=== PATIENT | female | born 1950 | race Caucasian/White ===

== ENCOUNTER → 2016-02-21 | Outpatient (CLI) | payer OTHER ==
[~2016-02-21] MED LIST: AMBIEN10 M1 PO; BACTRIM DS 8001 TA1 PO; CALCIUM 500 + D1 TA1 PO; CELEXA40 MG PO; DITROPAN XL5 MG PO; FLEXERIL10 MG PO; INDERAL PO; INDERAL40 MG PO; LEVOFLOXACIN500 MG PO; Orphenadrine C100 MG PO; PERCOCET 325 MG1 TA2 PO; PRAVACHOL40 MG PO; PREDNICOT10 MG PO; PRIMIDONE1 GM PO; SINEMET 25-2501 TAB PO; TRAMADOL HCL50 MG PO; TRAMADOL50 MG PO; ULTRAM50 MG PO; VITAMIN D32000 I1 PO; VITAMIN D32000 UNI1 PO; WELLBUTRIN SR150 MG PO; XANAX0.5 MG PO
== END | disposition home or self-care (01) ==
LOC: RAD 13:57
DX: M25.521 Pain in right elbow (principal); M25.421 Effusion, right elbow

== ENCOUNTER → 2016-03-11 | Outpatient (CLI) | payer OTHER | END | disposition home or self-care (01) | LOC: RAD 13:33 → LAB 13:33 | DX: M25.421 Effusion, right elbow (principal) ==

== ENCOUNTER → 2016-09-18 | Outpatient (CLI) | payer OTHER | END | disposition home or self-care (01) | LOC: CARD 09:26 | DX: I07.1 Rheumatic tricuspid insufficiency (principal); R60.0 Localized edema ==

== ENCOUNTER 2016-11-17 23:24 | Emergency (ER) | payer OTHER ==
[~2016-11-17] VITALS: Ht 162.5 cm; Wt 78.0 kg
[2016-11-17 23:31] VITALS: BP 111/61
== END 2016-11-18 01:44 | disposition home or self-care (01) ==
LOC: ED 23:24
DX: S01.111A Laceration without foreign body of right eyelid and periocular area, initial encounter (principal); S09.90XA Unspecified injury of head, initial encounter; Z90.710 Acquired absence of both cervix and uterus; Z98.890 Other specified postprocedural states; Z79.899 Other long term (current) drug therapy; Z88.6 Allergy status to analgesic agent; Z88.5 Allergy status to narcotic agent; W19.XXXA Unspecified fall, initial encounter; Y93.89 Activity, other specified; Y92.89 Other specified places as the place of occurrence of the external cause; Y99.9 Unspecified external cause status

== ENCOUNTER → 2016-12-03 | Outpatient (CLI) | payer OTHER ==
[~2016-12-03] MED LIST changes: +AMANTADINE HCL100 M2 PO; +DITROPAN XL10 MG PO; +DOXYCYCLINE100 M3 PO; +MYSOLINE250 MG PO; +Motrin,Rufen800 MG PO; +PREVACID30 M2 PO; +SEPTDS PO; +SINEMET 10-1001 EACH PO
--- NOTE | 2016-12-03 10:00 | NUR ---
INFORMED CONSENT OBTAINED FOR LEXISCAN NUCLEAR STRESS TEST WITH SYLVIA. RESTING EKG NSR WITH A RESTING HR OF 64 WITH BP OF 110/64. LUNGS CLEAR WITH SPO2 OF 97% ON ROOM AIR. PT COMPLETED A 1:00 LEXISCAN PROTOCOL RECEIVING LEXISCAN 0.4 MG IV OVER 10 SECONDS. HAD NO CHEST PAIN OR ANY EKG CHANGES. DID C/O FEELINGS OF SHORTNESS OF BREATH, NAUSEA, THROAT AND CHEST DISCOMFORT THAT WAS RELIEVED IN RECOVERY. HAD A PEAK HR OF 91 WITH BP OF 120/56. LAST RECOVERY HR OF 85 WITH BP OF 114/62. AWAITING SCANNING IN STABLE CONDITION.
== END | disposition home or self-care (01) ==
LOC: CARD 02:21
DX: R07.2 Precordial pain (principal); R53.81 Other malaise

== ENCOUNTER 2016-12-04 11:27 | Inpatient (IN) | payer OTHER ==
[~2016-12-04] VITALS: Ht 162.6 cm; Wt 79.2 kg
[~2016-12-04 11:27] MED LIST changes: -AMANTADINE HCL100 M2 PO; -DITROPAN XL10 MG PO; -DOXYCYCLINE100 M3 PO; -MYSOLINE250 MG PO; -Motrin,Rufen800 MG PO; -PREVACID30 M2 PO; -SEPTDS PO; -SINEMET 10-1001 EACH PO
[2016-12-04 11:38] VITALS: BP 123/76
[2016-12-04 12:25] LABS: BASO # 0.1 10*3/uL (0.0-0.1); BASO % 0.6 % (0.0-1.0); EOS # 0.3 10*3/uL (0.0-0.4); EOS % 3.1 % (1.0-4.0); HEMATOCRIT 36.9 % (37.0-47.0); HEMOGLOBIN 11.7 g/dl (12.0-16.0); LYMPH # 1.4 10*3/uL (1.3-4.4); LYMPH % 16.9 % (27.0-41.0); MEAN CELL VOLUME 95.8 fl (81.0-99.0); MEAN CORPUSCULAR HGB 30.4 pg (27.0-31.0); MEAN CORPUSCULAR HGB CONC 31.7 g/dl (33.0-37.0); MONO # 0.5 10*3/uL (0.1-1.0); MONO % 6.2 % (3.0-9.0); NEUT # 6.2 10*3/uL (2.3-7.9); NEUT % 72.7 % (47.0-73.0); PLATELET COUNT AUTOMATED 227 10*3/uL (130-400); RED BLOOD COUNT 3.85 10*6/uL (4.10-5.10); RED CELL DISTRI WIDTH 14.5 % (0-14.5); WHITE BLOOD COUNT 8.5 10*3/uL (4.8-10.8)
[2016-12-04 12:41] LABS: ALBUMIN 2.8 gm/dl (3.1-4.5); ALKALINE PHOSPHATASE 162 U/L (45-117); BUN 12 mg/dl (7-24); CHLORIDE 111 mmol/L (98-107); POTASSIUM 3.8 mmol/L (3.5-5.1); SGOT/AST 12 IU/L (3-35); SGPT/ALT 11 U/L (12-78); SODIUM 142 mmol/L (136-145); TOTAL PROTEIN 6.5 gm/dL (6.4-8.2)
--- NOTE | 2016-12-04 12:46 | NUR ---
PT REMAINS W/O ACUTE DISTRESS NOTED WITH FAMILY @ BEDSIDE PT WATHCING T.V. WITH CALL LIGHT WITHIN REACH AND SAFETY PRECAUTIONS INTACT, NO COMPLAINTS VOICED.
[2016-12-04 13:30] VITALS: BP 126/66
--- NOTE | 2016-12-04 13:30 | NUR ---
The assessment has been completed. MARCELINA NEWMAN
[2016-12-04] MEDS ORDERED: SINEMET 10-1001 EACH PO (14:00)
[2016-12-04] MEDS ORDERED: DITROPAN XL10 MG PO (14:01)
[2016-12-04] MEDS ORDERED: MYSOLINE250 MG PO (14:02)
[2016-12-04] MEDS ORDERED: Motrin,Rufen800 MG PO (14:03)
[2016-12-04] MEDS ORDERED: AMANTADINE HCL100 M2 PO (14:05)
[2016-12-04] MEDS ORDERED: DOXYCYCLINE100 M3 PO (14:07)
[2016-12-04] MEDS ORDERED: SEPTDS PO (14:07)
[2016-12-04] MEDS ORDERED: PREVACID30 M2 PO (14:09)
--- NOTE | 2016-12-04 14:09 | NUR ---
MEDICATION LIST REVIEWED WITH PATIENT AND PHARMACY AND MED REC UPDATED.
[2016-12-04 16:00] VITALS: BP 124/67
[2016-12-04 20:00] VITALS: BP 120/57
[2016-12-05] VITALS: BP 113/53
[2016-12-05 06:21] LABS: BASO # 0.1 10*3/uL (0.0-0.1); BASO % 0.7 % (0.0-1.0); EOS # 0.3 10*3/uL (0.0-0.4); HEMATOCRIT 35.5 % (37.0-47.0); HEMOGLOBIN 11.3 g/dl (12.0-16.0); LYMPH # 1.6 10*3/uL (1.3-4.4); LYMPH % 19.5 % (27.0-41.0); MEAN CELL VOLUME 96.2 fl (81.0-99.0); MEAN CORPUSCULAR HGB 30.6 pg (27.0-31.0); MEAN CORPUSCULAR HGB CONC 31.8 g/dl (33.0-37.0); MEAN PLATELET VOLUME 9.8 fl (9.6-12.3); MONO # 0.6 10*3/uL (0.1-1.0); MONO % 6.7 % (3.0-9.0); NEUT # 5.8 10*3/uL (2.3-7.9); NEUT % 69.7 % (47.0-73.0); PLATELET COUNT AUTOMATED 221 10*3/uL (130-400); RED BLOOD COUNT 3.69 10*6/uL (4.10-5.10); RED CELL DISTRI WIDTH 14.2 % (0-14.5); WHITE BLOOD COUNT 8.3 10*3/uL (4.8-10.8)
[2016-12-05 07:03] LABS: ALBUMIN 2.7 gm/dl (3.1-4.5); ALKALINE PHOSPHATASE 138 U/L (45-117); BUN 11 mg/dl (7-24); CHLORIDE 109 mmol/L (98-107); CHOLESTEROL 138 mg/dL (<200); PHOSPHOROUS 3.5 mg/dL (2.5-4.9); POTASSIUM 4.2 mmol/L (3.5-5.1); SGOT/AST 8 IU/L (3-35); SGPT/ALT 13 U/L (12-78); SODIUM 141 mmol/L (136-145); TOTAL PROTEIN 5.9 gm/dL (6.4-8.2); TRIGLYCERIDES 100 mg/dl (<150); VLDL CHOLESTEROL 20 mg/dL (6-40)
[2016-12-05 07:05] LABS: ACT PARTIAL THROMBO TIME 27.1 SECONDS (20.8-31.5); INTERNATIONAL NORM RATIO 0.9 (2.0-3.5)
[2016-12-05 07:08] LABS: VITAMIN D, 25-HYDROXY 19.3 ng/mL (30-100)
[2016-12-05 07:11] LABS: CREATININE 0.62 mg/dL (0.55-1.02); FREE T4 0.57 ng/dl (0.76-1.46); HDL CHOLESTEROL 63 mg/dl (40-60); LDL CHOLESTEROL 55 mg/dL (9-159)
[2016-12-05 08:00] VITALS: BP 127/66
--- NOTE | 2016-12-05 08:30 | NUR ---
Electrolysis Needle Operator in to talk to patient. Patient states lives at HOME with HER . There are 0 steps in the home. Physician: DR PERLA [facility] services: NONE Patient's level of ADLs: INDEPENDENT Patient has working utilities: YES DME: [facility]ER/[facility] Follow-up physician's appointment after d/c: PREFERS TO MAKE HER OWN APPT Does patient want to access PORTAL?: Discharge plan HOME. YESIKA GAUTAM PT HAS [facility] IN PLACE FOR PT/OT AND REQUESTS THIS CONTINUE AT UT
--- NOTE | 2016-12-05 09:02 | NUR ---
PT RESTING IN BED. NO DISTRESS NOTED. FAMILY AT BEDSIDE. WILL MONITOR. CALL LIGHT WITHIN REACH
--- NOTE | 2016-12-05 09:13 | NUR ---
Patient reports that she has LLE pain radiating from hip to foot and she requested no Occupational Therapy evaluation this date. OTR will recheck at a later date. Thank you for this referral. Zenaida Schulz OTR/Jw
--- NOTE | 2016-12-05 09:15 | NUR ---
PHYSICAL THERAPY PAtient requests no PT this date secondary to severe LE pain. Will attempt at a later date. Thank you for this referral. Nely Booth,PT
--- NOTE | 2016-12-05 09:28 | NUR ---
PT REQUESTED AND GIVEN MOTRIN FOR C/O LEFT HIP PAIN. PT RATES PAIN 6/10. WILL MONITOR
--- NOTE | 2016-12-05 11:30 | NUR ---
MOTRIN EFFECTIVE PER PT . FAMILY AT BEDSIDE
[2016-12-05 12:00] VITALS: BP 121/79
[2016-12-05 16:00] VITALS: BP 116/69
[2016-12-05 20:00] VITALS: BP 133/82
--- NOTE | 2016-12-05 20:00 | NUR ---
PATIENT MEDICATED WITH NAPROXEN 375MG PER PRN ORDER FOR C/O PAIN. SEE EMAR. REINFORCED USE OF CALL LIGHT.
[2016-12-06] VITALS: BP 130/80
--- NOTE | 2016-12-06 | NUR ---
PATIENT RESTING QUIETLY. NO FURTHER C/O VOICED.
[2016-12-06 08:00] VITALS: BP 125/59
--- NOTE | 2016-12-06 08:35 | NUR ---
DR TOMPKINS IN TO SEE PT AT THIS TIME.
--- NOTE | 2016-12-06 08:45 | NUR ---
MEDICATED WITH NAPROXEN FOR COMPLAINTS OF LEFT HIP PAIN. WILL MONITOR FOR EFFECTIVENESS.
[2016-12-06] MEDS ORDERED: VITAMIN D32000 UNI1 PO (10:39)
[2016-12-06] MEDS ORDERED: NAPROXEN375 MG PO (10:39)
--- NOTE | 2016-12-06 10:46 | NUR ---
PHYSICAL THERAPY PAtient evaluated on 5, full evaluation to follow. continue with PT as per plan of care with fall and MRSA Scalp precautions. Home with home health RN and PT as needed. PAtient is moderate complexity via chart review, tests and evaluation: [id number]. Thank you for this referral. Nely Booth,PT
[2016-12-06] MEDS ORDERED: RIFADIN300 MG PO (11:35)
[2016-12-06] MEDS ORDERED: DOXYCYCLINE100 M3 PO (11:35)
[2016-12-06 12:00] VITALS: BP 118/79
--- NOTE | 2016-12-06 13:00 | NUR ---
DR AMES AND DR PERLA IN TO SEE PT.
--- NOTE | 2016-12-06 14:04 | NUR ---
Discharge instructions reviewed with patient/family. Patient receptive and verbalizes understanding. Follow-up care arranged. Written instructions given to patient/family. IV site removed, pt transported to [facility] via wheelchair accompanied by staff. RUT FLORES
--- NOTE | 2016-12-09 08:24 | NUR ---
PHYSICAL THERAPY CO-SIGN I approve of the Phyical Therapy notes written above. LUIS ENRIQUE BOYER PT
--- NOTE | 2016-12-09 08:51 | NUR ---
Patient discharged to home 12/06/16 to resume home health via [facility]. Received resume order, faxed to [facility].
== END 2016-12-06 14:04 | disposition home or self-care (01) | DRG 91 ==
LOC: ED 11:27 → EDHOLD 12:15 → 5E 12:15
PROVIDERS: Internal Medicine Hospice and Palliative Medicine; Physician Assistant; ADMIT Internal Medicine
DX: T85.731A Infection and inflammatory reaction due to implanted electronic neurostimulator of brain, electrode (lead), initial encounter (principal); E43 Unspecified severe protein-calorie malnutrition; E87.8 Other disorders of electrolyte and fluid balance, not elsewhere classified; G20 Parkinson's disease; F03.90 Unspecified dementia, unspecified severity, without behavioral disturbance, psychotic disturbance, mood disturbance, and anxiety; L02.811 Cutaneous abscess of head [any part, except face]; A49.02 Methicillin resistant Staphylococcus aureus infection, unspecified site; D64.9 Anemia, unspecified; F41.1 Generalized anxiety disorder; F32.9 Major depressive disorder, single episode, unspecified; Y83.8 Other surgical procedures as the cause of abnormal reaction of the patient, or of later complication, without mention of misadventure at the time of the procedure; G47.00 Insomnia, unspecified; N32.81 Overactive bladder; E78.00 Pure hypercholesterolemia, unspecified; E55.9 Vitamin D deficiency, unspecified; M54.5 Low back pain; G89.29 Other chronic pain; Z71.6 Tobacco abuse counseling; Z72.0 Tobacco use; Z98.890 Other specified postprocedural states; Y92.89 Other specified places as the place of occurrence of the external cause; Z88.6 Allergy status to analgesic agent; Z88.8 Allergy status to other drugs, medicaments and biological substances; Z79.899 Other long term (current) drug therapy; Z90.49 Acquired absence of other specified parts of digestive tract; Z90.710 Acquired absence of both cervix and uterus; Z82.49 Family history of ischemic heart disease and other diseases of the circulatory system; Z82.3 Family history of stroke; Z80.1 Family history of malignant neoplasm of trachea, bronchus and lung; Z80.8 Family history of malignant neoplasm of other organs or systems; Z68.29 Body mass index [BMI] 29.0-29.9, adult

== ENCOUNTER → 2016-12-11 | Outpatient (CLI) | payer OTHER ==
[~2016-12-11] MED LIST changes: +AMANTADINE HCL100 M2 PO; +DITROPAN XL10 MG PO; +DOXYCYCLINE100 M3 PO; +MYSOLINE250 MG PO; +Motrin,Rufen800 MG PO; +NAPROXEN375 MG PO; +PREVACID30 M2 PO; +RIFADIN300 MG PO; +SEPTDS PO; +SINEMET 10-1001 EACH PO
[2016-12-11 13:14] LABS: BASO # 0.1 10*3/uL (0.0-0.1); BASO % 0.7 % (0.0-1.0); EOS # 0.3 10*3/uL (0.0-0.4); EOS % 2.7 % (1.0-4.0); HEMATOCRIT 40.1 % (37.0-47.0); HEMOGLOBIN 12.6 g/dl (12.0-16.0); LYMPH # 1.6 10*3/uL (1.3-4.4); LYMPH % 14.8 % (27.0-41.0); MEAN CELL VOLUME 95.5 fl (81.0-99.0); MEAN CORPUSCULAR HGB CONC 31.4 g/dl (33.0-37.0); MEAN PLATELET VOLUME 9.9 fl (9.6-12.3); MONO # 0.6 10*3/uL (0.1-1.0); MONO % 5.2 % (3.0-9.0); NEUT # 8.1 10*3/uL (2.3-7.9); NEUT % 76.1 % (47.0-73.0); PLATELET COUNT AUTOMATED 274 10*3/uL (130-400); RED CELL DISTRI WIDTH 14.6 % (0-14.5); WHITE BLOOD COUNT 10.7 10*3/uL (4.8-10.8)
[2016-12-11 13:25] LABS: BILIRUBIN NEGATIVE (NEGATIVE); BLOOD NEGATIVE (NEGATIVE); CLARITY CLEAR (CLEAR); COLOR YELLOW (YELLOW); GLUCOSE NEGATIVE (NEGATIVE); KETONE NEGATIVE (NEGATIVE); LEUKO ESTERASE NEGATIVE (NEGATIVE); NITRITE NEGATIVE (NEGATIVE); PH 5.5 (5.0-9.0); SPECIFIC GRAVITY <= 1.005 (1.005-1.030); UROBILINOGEN 0.2 E.U./dl (0.2-1.0)
[2016-12-11 13:45] LABS: ALBUMIN 3.3 gm/dl (3.1-4.5); ALKALINE PHOSPHATASE 170 U/L (45-117); BUN 22 mg/dl (7-24); CHLORIDE 109 mmol/L (98-107); CREATININE 0.83 mg/dL (0.55-1.02); POTASSIUM 4.5 mmol/L (3.5-5.1); SGOT/AST 11 IU/L (3-35); SGPT/ALT 11 U/L (12-78); SODIUM 142 mmol/L (136-145); TOTAL PROTEIN 6.6 gm/dL (6.4-8.2)
[2016-12-11 13:46] LABS: ACT PARTIAL THROMBO TIME 28.7 SECONDS (20.8-31.5)
[2016-12-11 13:48] LABS: BACTERIA TRACE
== END | disposition home or self-care (01) ==
LOC: LAB 12:39
PROVIDERS: Neurological Surgery
DX: G20 Parkinson's disease (principal); R79.89 Other specified abnormal findings of blood chemistry; F17.200 Nicotine dependence, unspecified, uncomplicated; Z79.01 Long term (current) use of anticoagulants

== ENCOUNTER 2016-12-25 14:40 | Inpatient (IN) | payer OTHER ==
[~2016-12-25] VITALS: Ht 168 cm; Wt 77.7 kg
--- NOTE | ~2016-12-25 | PR ---
[place], [place] PROGRESS NOTE NAME: GIO MCKOY [facility] #: [id number] UNIT #: [id number] ROOM: 503 DOCTOR: RENA BURRELL,MAY BIRTHDATE: [birth year] DOS: SUBJECTIVE: The patient is a 66-year-old old female being followed for an infected deep brain stimulator that she has for Parkinson's. It is infected with Staph aureus. Cultures here from November show MSSA, but the patient reports that it was MRSA. She was at home on vancomycin per Infectious Disease from [facility] and developed acute kidney injury. Her creatinine continues to improve and it is today down to 2.47. She is alert and oriented, feels fairly well as having some left hip pain. She states she has bursitis in the hip. No fevers or chills, did have some nausea and vomiting with her this morning. No rash or itch. No cough or shortness of breath. LABORATORY DATA: WBC 6.9, platelets 135. BUN 32, creatinine 2.47. LFTs within normal limits. CURRENT MEDICATIONS: Include Percocet, Symmetrel, rifampin, Mysoline, Celexa, Sinemet, Wellbutrin, Ambien, heparin, Zofran, milk of mag, Dulcolax, and Tylenol. PHYSICAL EXAMINATION: VITAL SIGNS: Temperature 97.6, pulse 51, respirations 20, BP 169/76. GENERAL: Alert and oriented 66-year-old female, in no acute distress. HEAD, EYES, EARS, NOSE AND THROAT: Normocephalic, no thrush. LUNGS: Clear to auscultation bilaterally. Respirations even and unlabored. HEART: Regular rhythm. No murmur appreciated. ABDOMEN: Soft, nontender. EXTREMITIES: No edema, deformity or cyanosis. The right frontal scalp with the incisional approximated with sutures. No discharge or erythema. ASSESSMENT: Infected deep brain stimulator with hardware left in place status post debridement at [facility]. PLAN: The patient's creatinine is improving. Antibiotics will need to be restarted once her vancomycin level is less than 20. We will check a random level on December 29 in a.m. I did obtain the contact information for her Infectious Disease physician in [facility], Dr. Jeffrey, phone number [phone]. They will be contacted to discuss discharge antibiotics. Continue the rifampin. Case discussed with Dr. Anne Kinsey. DANDRE CHASE CNP [place], [place] PROGRESS NOTE NAME: EANGIO UNIT #: [id number] ROOM: 503 DOCTOR: RENA BURRELL BIRTHDATE: [birth year] ANNE KINSEY MD CM:PNADELAIDA 09 [phone] RENA BURRELL 12/27/161850 interface
--- NOTE | ~2016-12-25 | PR ---
[place], [place] PROGRESS NOTE NAME: GIO MCKOY UNIT #: [id number] ROOM: 503 DOCTOR: AMELIE LEAHY,ANNE Villalba BIRTHDATE: [birth year] DOS: 12/27/2016 ADDENDUM After reviewing the chart and the labs, I agree with the above plans as described. We will make adjustments accordingly and follow up clinically. ANNE KINSEY MD CM:PNTRANS 192 10 ANNE KINSEY MD 12/30/16 1105 interface
--- NOTE | ~2016-12-25 | PR ---
[place], [place] [facility]GRESS [id number] UNIT #: [id number] ROOM: 503 DOCTOR: AMELIE LEAHY,ANNE Villalba BIRTHDATE: [birth year] DOS: 12/27/2016 ADDENDUM After reviewing the chart and labs as well as microbiology, I agree with above plans as described. We will follow the patient up clinically and adjust accordingly. ANNE KINSEY MD CM:PNTRANS [phone] ANNE KINSEY MD 12/30/16 1105 interface
--- NOTE | ~2016-12-25 | PR ---
[place], [place] PROGRESS NOTE NAME: GIO MCKOY [facility] #: [id number] UNIT #: [id number] ROOM: 503 DOCTOR: RENA BURRELLMAY BIRTHDATE: [birth year] DOS: 12/28/2016 SUBJECTIVE: The patient is being followed for deep brain stimulator infected hardware with Staph aureus. Cultures here in November had grown MSSA, but the patient states that she was treated for MRSA at [facility]. She suffered an acute kidney injury from her vancomycin as an outpatient and her creatinine has been improving. Today, it is down to 2.37. Her last vancomycin level was 38 a couple of days ago. She remains afebrile. No nausea, vomiting or diarrhea. No rash or itch. No cough or shortness of breath. No headache or dizziness. No chest pain or palpitations. LABORATORY DATA: Show WBCs of 8.4, platelets 146. BUN 27, creatinine 2.37. CURRENT MEDICATIONS: Include rifampin, Percocet, salmeterol, Mysoline, Celexa, Sinemet, Wellbutrin, Ambien, heparin, Zofran, milk of mag, Dulcolax, Tylenol. PHYSICAL EXAMINATION: VITAL SIGNS: Show temp 97.9, pulse 69, respirations 18, BP 178/84. GENERAL: Alert and oriented 66-year-old female, in no acute distress. HEAD, EYES, EARS, NOSE, AND THROAT: Scalp incision is well approximated with sutures. No discharge or cellulitis. No thrush. Edentulous. LUNGS: Clear to auscultation bilaterally. Respirations even and unlabored. HEART: Regular rhythm. No murmur appreciated. ABDOMEN: Soft, nontender. EXTREMITIES: +2 edema bilateral lower extremities. PICC in the right upper extremity. Dressing dry and intact. No signs of phlebitis. ASSESSMENT: Infected deep brain stimulator with Staphylococcus aureus, now with adverse drug reaction with an acute kidney injury due to her vancomycin. PLAN: We will continue the rifampin, check a random vancomycin level in the morning. I intend to contact Dr. Jeffrey with [facility] Infectious Disease to discuss discharge with antibiotics on Friday. MAY ASHANTI CHASE [place], [place] PROGRESS NOTE NAME: GIO MCKOY UNIT #: [id number] ROOM: 503 DOCTOR: RENA BURRELL,MAY BIRTHDATE: [birth year] ANNE KINSEY MD CM:LOUIE 43 12 RENA BURRELL 12/30/16 1050 interface
--- NOTE | ~2016-12-25 | PR ---
[place], [place] PROGRESS NOTE NAME: GIO MCKOY [facility] #: [id number] UNIT #: [id number] ROOM: 503 DOCTOR: RENA BURRELL,MAY BIRTHDATE: [birth year] DOS: SUBJECTIVE: The patient is being followed for an infected brain stimulator. She had an acute kidney injury due to IV vancomycin. She remains on rifampin. I discussed the case yesterday with her ID physician from [place] and verified that her culture there grew MSSA. Her culture here in November grew MSSA. She was restarted yesterday evening on Ancef 2 grams IV q. 12 hours. Her creatinine clearance is still in the low 30s, precluding q. 8 hours dosing just yet. She is doing well. Denies any fevers, chills, nausea, vomiting or diarrhea. No rash or itch. No cough or shortness of breath. No headache or dizziness. LABORATORY DATA: BUN 23, creatinine 2.11, continues to slowly improve. CURRENT MEDICATIONS: Include Ancef, Percocet, rifampin, Symmetrel, Mysoline, Celexa, Sinemet, Wellbutrin, Ambien, heparin, Zofran, milk of mag, Dulcolax, Tylenol. OBJECTIVE: VITAL SIGNS: Temperature 97.9, pulse 64, respirations 20, BP 148/68. GENERAL: A 66-year-old female, in no acute distress. HEAD, EYES, EARS, NOSE AND THROAT: Normocephalic. Incision is well approximated with sutures. No discharge or erythema. LUNGS: Clear to auscultation bilaterally. Respirations even and unlabored. HEART: Regular rhythm. No murmur appreciated. ABDOMEN: Soft, nontender. EXTREMITIES: No edema. PICC in place. Dressing dry and intact. No signs of phlebitis. ASSESSMENT: Infected brain stimulator with methicillin-susceptible Staphylococcus aureus and retained hardware, status post debridement on December 19. PLAN: She is to continue her Ancef, is okay for discharge. She is to follow up with ID in [place]. I am going to contact their office to let them know they need to be watching for her creatinine to improve in order to be able to ____ dosing to every 8 hours, but at this point her GFR remains too low for that. She is to continue rifampin as well. MAY ASHANTI CHASE [place], [place] PROGRESS NOTE NAME: EANGIO UNIT #: [id number] ROOM: 503 DOCTOR: RENA BURRELLMAY BIRTHDATE: [birth year] ANNE KINSEY MD CM:PNTRANS [id number] MAY RENA BURRELL 01/01/17 0419 interface
--- NOTE | ~2016-12-25 | PR ---
[place], [place] PROGRESS NOTE NAME: GIO MCKOY [facility] #: [id number] UNIT #: [id number] ROOM: 503 DOCTOR: SANTA QUINONES MD BIRTHDATE: [birth year] DOS: 12/29/2016 SUBJECTIVE: The patient has been admitted to the hospital with acute renal failure on chronic renal failure. She is gradually getting better and has been seen by collection systems foreman; according to them, the patient has acute kidney injury secondary to vancomycin and NSAIDs, which was stopped and she is feeling better. Her infection is feeling better. Her CBC showed white count 7400, hemoglobin 10.3, hematocrit 31.2. Renal function today showed glucose 93, BUN 24, creatinine 2.24, GFR 22, chloride 108, other values are normal. Patient is also having infected deep brain stimulator with hardware in the left side, which has got infected and due to that, she needs antibiotic treatment and that is why she was getting vancomycin and now at present, patient is cleared to take vancomycin according to the collection systems foreman. OBJECTIVE: VITAL SIGNS: Blood pressure is 160/70, pulse 70, respirations 18, temperature 97.8. CHEST: Clear. HEART: Regular. ABDOMEN: Soft. SANTA QUINONES MD CM:PNADELAIDA [id number] SANTA QUINONES MD 12/29/16 2317 interface
--- NOTE | ~2016-12-25 | PR ---
[place], [place] PROGRESS NOTE NAME: GIO MCKOY UNIT #: [id number] ROOM: 503 DOCTOR: AMELIE LEAHY,ANNE Villalba BIRTHDATE: [birth year] DOS: 12/28/2016 ADDENDUM After reviewing short labs and radiographs, I agree with above plans as described and follow the patient up clinically and adjust accordingly. ANNE KINSEY MD CM:PNADELAIDA [phone] ANNE KINSEY MD 12/30/16 1105 interface
--- NOTE | ~2016-12-25 | PR ---
[place], [place] PROGRESS NOTE NAME: GIO MCKOY [facility] #: [id number] UNIT #: [id number] ROOM: 503 DOCTOR: SANTA QUINONES MD BIRTHDATE: [birth year] DOS: 12/28/2016 SUBJECTIVE: The patient has been admitted to the hospital with infection of the deep brain stimulator with Parkinson's disease and she had MRSA infection for which she is being treated. She had developed acute renal failure due to the vancomycin, so that was stopped and she is slowly improving. Her CBC today is showing white count 8400, hemoglobin 9.8, hematocrit 30.6. Her renal function shows BUN is 27, creatinine 2.37. GFR 20 and the patient has been seen by Dr. Mireles today and he is satisfied that the patient is improving. OBJECTIVE: VITAL SIGNS: Blood pressure today is 140/69, pulse 64, respirations 18, temperature 98.4. CHEST: Clear. HEART: Regular. ABDOMEN: Soft. The patient is denying having any acute distress. SANTA QUINONES MD CM:PNTRANS [phone] SANTA QUINONES MD 12/30/16 1100 interface
--- NOTE | ~2016-12-25 | CON ---
[place], [place] REPORT OF CONSULTATION [id number] UNIT #: [id number] ROOM: 503 DOCTOR: RENA BURRELL,MAY BIRTHDATE: [birth year] DOS: HISTORY OF PRESENT ILLNESS: The patient is a 66-year-old female. She was at [facility]. She had an infected brain stimulator in place. She developed infection there with, according to the patient, MRSA. She had debridement done on December 18, the hardware was left in place. She was placed on vancomycin and rifampin. She went home. Her routine labs while she was at home obtained by home health showed an elevated creatinine and vancomycin level. She was admitted to [facility] with acute kidney injury as the deep brain stimulator was originally placed in April 2016. She had been seen here previously per review of the old [facility] records. ID is now consulted for continued antibiotic management. Her vancomycin level at the time of admission was 48.4 on the , it is down to 38.9 today. Creatinine has begun improving. It is down to 2.83 today; on the , it was 3.14. She is not currently receiving any vancomycin. Her rifampin has not been continued either. She is alert and oriented, feeling fairly well. No fevers or chills. No rash or itch. Review of the cultures here from December 04 showed MSSA, not MRSA and the MRSA screen was negative. PAST MEDICAL HISTORY: As above as well as cervical radiculopathy, chronic back pain, dementia, depression, left parotid facial droop since the left parotid surgery, general anxiety disorder, hypercholesterolemia, insomnia, overactive bladder, Parkinson's disease, tobacco abuse, vitamin D deficiency, appendectomy, blepharoplasty, deep brain stimulator placement for Parkinson's in April of this year, cholecystectomy, hysterectomy, left parotidectomy. SOCIAL HISTORY: Reformed smoker, a pack per day for 50 years. No alcohol or illicit drug use. FAMILY MEDICAL HISTORY: Her brother at age of 45 from [place], a sister with brain aneurysm, sister and brother with lung cancer. ALLERGIES: INCLUDE ACETAMINOPHEN, HYDROCODONE, MORPHINE AND TRAMADOL. LABORATORY DATA: Only culture of this hospitalization is urine culture with no current bacterial breath. WBC 6.8, platelets 144, BUN 34, creatinine 2.83. LFTs within normal limits. CURRENT MEDICATIONS: Include Symmetrel, Mysoline, Celexa, Sinemet, Wellbutrin, zolpidem, Ambien, Zofran, milk of mag, Dulcolax, Tylenol. REVIEW OF SYSTEMS: Alert and oriented. Has a slightly headache, no nausea or vomiting, no diarrhea, no rash or itch, no cough or shortness of breath, feels fairly well. No difficulty with urination, dysuria or frequency. Does have chronic left facial droop from prior surgery. No joint swelling or pain. Further review of systems is unremarkable. PHYSICAL EXAMINATION: VITAL SIGNS: Show temp 98.2, pulse 59, respirations 18, BP 154/73: GENERAL: A 66-year-old female in no acute distress. [place], [place] REPORT OF CONSULTATION NAME: GIO MCKOY UNIT #: [id number] ROOM: [facility] DOCTOR: RENA BURRELL,MAY BIRTHDATE: [birth year] HEAD, EYES, EARS, NOSE AND THROAT: Normocephalic, no thrush. NECK: Supple. Right scalp incision is well approximated with sutures. No discharge or erythema. LUNGS: Clear to auscultation bilaterally. Respirations even and unlabored. HEART: Regular rhythm. No murmur appreciated. ABDOMEN: Soft, nontender, nondistended. EXTREMITIES: No edema, deformity or cyanosis. She is noted to have left facial droop. She has PICC in the right upper extremity. Dressing dry and intact. No signs of phlebitis. ASSESSMENT AND PLAN: Infected deep brain stimulator status post debridement, but not removal, now with acute kidney injury and has an adverse drug reaction due to her vancomycin. Her rifampin needs to be resumed that is to help the antibiotics pill to penetrate to the biofilm of the Staph on the hardware will need to be contacted prior to her discharge to see if they would like to use Teflaro or daptomycin at the time of discharge. She is currently covered with her vancomycin as her level is still therapeutic and it could be reached in a couple of days. The wound culture here from December 04 showed methicillin-susceptible Staphylococcus aureus, but the patient states it was methicillin-resistant Staphylococcus aureus from her debridement. Case discussed with Dr. Anne Kinsey. ADDENDUM After reviewing the case, labs radiographs and microbiology, I agree with the above plans as described. We will make adjustments as more data returns and follow up clinically. Thank for allowing me to see the patient and participate in care. DANDRE CHASE CNP ANNE KINSEY MD CM:CONSTR:REPORT OF CONSULTATION 1742 12/27/16 0032 interface
--- NOTE | ~2016-12-25 | PR ---
[place], [place] PROGRESS NOTE NAME: GIO MCKOY [facility] #: [id number] UNIT #: [id number] ROOM: 503 DOCTOR: RENA BURRELL,MAY BIRTHDATE: [birth year] DOS: 12/30/2016 SUBJECTIVE: The patient is being followed for infected brain stimulator, which has been status post debridement on December 19. Cultures here grew MSSA, but the patient states she had MRSA in [place] where it was actually debrided. She was on vancomycin and rifampin as an outpatient. She developed acute kidney injury that continues to improve. Her creatinine is now down to 2.19. Her random vanco level yesterday was 20.5. She is alert and oriented, feeling well, wants to go home. Denies fevers, chills, nausea, vomiting or diarrhea. No rash or itch. No cough or shortness of breath. LABORATORY DATA: Urine culture was negative. WBC is 5.9, platelets 201. BUN 20, creatinine 2.19. CURRENT MEDICATIONS: Percocet, rifampin, Symmetrel, Mysoline, Celexa, Sinemet, Wellbutrin, Ambien, heparin, Zofran, milk of mag, Dulcolax and Tylenol. OBJECTIVE: VITAL SIGNS: Show temperature 98.3, pulse 70, respirations 18, BP 142/70. GENERAL: A 66-year-old female, in no acute distress. HEAD, EYES, EARS. NOSE AND THROAT: Normocephalic. No thrush. LUNGS: Clear to auscultation bilaterally. Respirations even and unlabored. HEART: Regular rhythm. No murmur appreciated. ABDOMEN: Soft, nontender. EXTREMITIES: No edema or deformity. PICC in place. Dressing dry and intact. No signs of phlebitis. Scalp incision is well approximated with sutures. No discharge or erythema. ASSESSMENT: Infected brain stimulator with Staphylococcus aureus. Cultures here in November grew methicillin-susceptible Staphylococcus aureus, but the patient reports methicillin-resistant Staphylococcus aureus at [place]. She was outpatient on vancomycin and rifampin, developed acute kidney injury. Her creatinine continues to improve day by day. PLAN: She would be okay for discharge from an infectious disease standpoint once we discuss with [place] [facility] regarding discharge antibiotic. I do have a call out to their Infectious Disease and I am awaiting a return call and I also advised her she should follow up with [facility], she already has an appointment there in a few weeks. Case discussed with Dr. Anne Kinsey. DANDRE CHASE CNP [place], [place] PROGRESS NOTE NAME: SANTIAGO MCKOYDANNI Javed UNIT #: [id number] ROOM: 503 DOCTOR: RENA BURRELL BIRTHDATE: [birth year] ANNE KINSEY MD CM:PNTRANS 1126 [id number] MAY RENA BURRELL 12/30/16 1541 interface
--- NOTE | ~2016-12-25 | PR ---
[place], [place] PROGRESS NOTE NAME: GIO MCKOY [facility] #: [id number] UNIT #: [id number] ROOM: 503 DOCTOR: ROSE MARIE QUARLES MD BIRTHDATE: [birth year] DOS: 12/28/2016 SUBJECTIVE: The patient was seen in followup of acute kidney injury. She tried to get up and states that she wants to go home right now. I redirected her to bed and explained to her that she should not go home and that her renal function was still not normal. Her creatinine has been improving, it is down to 2.37 from 3.13 on the 8th. She does not report any significant leg swelling, shortness of breath, chest pains, nausea or vomiting. OBJECTIVE: VITAL SIGNS: Temperature 98.2, 66, 20, 170/74, 97% to 100% on room air. GENERAL: She is awake, alert, older appearing than her stated age, obese female. Her lower extremities may be some lymphadenopathy present, but overall no significant massive dependent edema. She has prior eschar from her deep brain stimulator debridement, which is well approximated. LUNGS: Clear, without audible rales or wheeze. CARDIOVASCULAR: Rate is regular. No audible rub, no lift or heave. ABDOMEN: Obese, soft, nontender. No rebound, no guarding. EXTREMITIES: No CVA tenderness. SKIN: Without diffuse rashes. The mood and affect are normal. Speech is clear and cogent. LABORATORY DATA AND DIAGNOSTICS: White blood cell count 8.4, hemoglobin 9.8 and stable, platelets 146. Sodium 140, potassium 4.4, chloride 110, bicarbonate 20, BUN 27, creatinine 2.37, EGFR 20, but this is not entirely accurate as the creatinine is not in steady state, glucose 89, calcium 8.8, phosphorus 3.9, albumin 2.9. ASSESSMENT AND PLAN: Acute kidney injury suspected secondary to vancomycin and NSAID use, which one was caused by is not clear. Certainly, the prerenal factors and ATN may have caused a worsened accumulation of vancomycin, which in turn may have caused some cast nephropathy, interstitial nephritis, or acute tubular necrosis. Her random vancomycin level was near 39 and a recheck is pending per ID, they do feel that her antibiotic type should be changed, I have no problem with that. I recommend follow up with the Infectious Disease specialist at [facility] for that. In terms of electrolytes and acid base status, these are acceptable. She does have mild anion gap acidosis, which is stable. The patient should start improving. I encouraged oral intake and hydration. [place], [place] PROGRESS NOTE NAME: GIO MCKYO UNIT #: [id number] ROOM: [facility] DOCTOR: ROSE MARIE QUARLES MD BIRTHDATE: [birth year] ROSE MARIE QUARLES MD CM:[id number] [phone] ROSE MARIE QUARLES MD 12/28/162112 interface
--- NOTE | ~2016-12-25 | PR ---
[place], [place] PROGRESS NOTE NAME: GIO MCKOY UNIT #: [id number] ROOM: 503 DOCTOR: ROSE MARIE QUARLES MD BIRTHDATE: [birth year] DOS: 12/29/2016 NEPHROLOGY PROGRESS NOTE. SUBJECTIVE: The patient continues to want to go home. She understands when I talk to her, seemingly that she needs to be here, but again takes redirection. She had not reported chest pain, shortness of breath, fevers, chills. PHYSICAL EXAMINATION: VITAL SIGNS: She is afebrile 97.7, pulse 71, respiratory rate 18, blood pressure 140/70, pulse ox 94% on room air. GENERAL: She is awake, alert. She is oriented, without acute distress, breathing is comfortable. LUNGS: Clear. HEAD AND NECK: Without scleral icterus, prior scar from her DBS. CARDIOVASCULAR: Rate is controlled. No audible rub. ABDOMEN: Soft, nontender, obese. No costovertebral angle tenderness. EXTREMITIES: Without cyanosis, clubbing. SKIN: Without diffuse rashes. NEUROLOGIC: Speech is clear and cogent. LABORATORY DATA AND DIAGNOSTICS: White blood cell count 7.4, hemoglobin 10.3, platelets 169. Sodium 140, potassium 4.2, chloride 108, bicarbonate 22. BUN 24, creatinine 2.25 and stable, continues improving. Glucose 93, calcium 8.8, phosphorus 3.6, albumin 3.2 and random 20.5. ASSESSMENT AND PLAN: Acute kidney injury secondary to likely NSAID use and some possible vancomycin toxicity. I suspect the prerenal factors and ATN was caused by her NSAIDs and then it caused worsening accumulation of vancomycin, which may have caused either casts nephropathy or interstitial nephritis or both and ongoing tubular necrosis. Her levels were 39 and are improving. Her renal function does seem to be improving. I had deferred her antibiotic choices to her Infectious Disease specialist. Electrolytes and acid base status are improving and mild anion gap is improving, stable. Her anemia is stable and hypertension is labile but fairly well controlled at this point on current medications. [place], [place] PROGRESS NOTE NAME: GIO MCKOY UNIT #: [id number] ROOM: 503 DOCTOR: ROSE MARIE QUARLES MD BIRTHDATE: [birth year] ROSE MARIE QUARLES MD CM:[id number] ROSE MARIE QUARLES MD 12/29/16 2328 interface
[~2016-12-25 14:40] MED LIST changes: +INDERAL XL80 MG PO; -INDERAL40 MG PO
[2016-12-25 14:59] VITALS: BP 145/77
--- NOTE | 2016-12-25 15:30 | NUR ---
RAO MACKAY AT [facility] CAN BE REACHED AT [phone] UNTIL 1800 AFTER 1800 CALL THE HOSPITALIST NUMBER AT [phone].
[2016-12-25 15:50] LABS: BASO % 0.6 % (0.0-1.0); EOS # 0.4 10*3/uL (0.0-0.4); EOS % 5.9 % (1.0-4.0); HEMATOCRIT 32.5 % (37.0-47.0); HEMOGLOBIN 10.3 g/dl (12.0-16.0); LYMPH # 0.9 10*3/uL (1.3-4.4); LYMPH % 13.9 % (27.0-41.0); MEAN CELL VOLUME 96.4 fl (81.0-99.0); MEAN CORPUSCULAR HGB 30.6 pg (27.0-31.0); MEAN CORPUSCULAR HGB CONC 31.7 g/dl (33.0-37.0); MONO # 0.5 10*3/uL (0.1-1.0); MONO % 8.1 % (3.0-9.0); NEUT # 4.5 10*3/uL (2.3-7.9); NEUT % 70.9 % (47.0-73.0); PLATELET COUNT AUTOMATED 150 10*3/uL (130-400); RED BLOOD COUNT 3.37 10*6/uL (4.10-5.10); RED CELL DISTRI WIDTH 14.2 % (0-14.5); WHITE BLOOD COUNT 6.3 10*3/uL (4.8-10.8)
[2016-12-25 16:00] VITALS: BP 134/72
[2016-12-25 16:05] LABS: ALBUMIN 2.7 gm/dl (3.1-4.5); CREATININE 3.13 mg/dL (0.55-1.02); POTASSIUM 5.2 mmol/L (3.5-5.1); TOTAL PROTEIN 6.2 gm/dL (6.4-8.2)
[2016-12-25 17:00] VITALS: BP 140/71
[2016-12-25 17:04] LABS: BILIRUBIN NEGATIVE (NEGATIVE); BLOOD 3+ (NEGATIVE); CLARITY SL CLOUDY (CLEAR); COLOR YELLOW (YELLOW); GLUCOSE NEGATIVE (NEGATIVE); KETONE NEGATIVE (NEGATIVE); LEUKO ESTERASE TRACE (NEGATIVE); NITRITE NEGATIVE (NEGATIVE); PH 7.5 (5.0-9.0); SPECIFIC GRAVITY 1.015 (1.005-1.030); UROBILINOGEN 0.2 E.U./dl (0.2-1.0)
[2016-12-25 17:22] LABS: BACTERIA TRACE; EPITHELIAL CELLS 45-50; RBC 21-30 rbc/hpf (0-2)
[2016-12-25 18:00] VITALS: BP 142/74
[2016-12-25] MEDS ORDERED: NORCO 5-325 TA1 EACH PO (18:22)
--- NOTE | 2016-12-25 18:35 | NUR ---
A 66, admitted to 5E, under the services of ERICKA Patel MD with a diagnosis of ACUTE RENAL FAILURE. Chief complaint is ABNORMAL LABS. Patient arrived via bed from ER. Monitor applied. Initial assessment completed. Vital signs taken and recorded. ERICKA PATEL MD notified of admission to the unit. Orders received. See assessment for past medical history, medications and allergies. Patient and/or family oriented to unit. [facility] visitation policy reviewed. Clothing/patient valuable form completed. ERIN CANALES
--- NOTE | 2016-12-25 18:49 | NUR ---
MED REC COMPLETED WITH FAXED MED LIST FROM [facility].
[2016-12-25 20:00] VITALS: BP 164/74
--- NOTE | 2016-12-25 21:14 | NUR ---
DR QUARLES'S ANSWERING SERVICE AWARE OF CONSULT. STATES SHE WILL LET THEM KNOW
[2016-12-25 21:43] VITALS: BP 111/68
--- NOTE | 2016-12-25 22:25 | NUR ---
DR ROBERTS AWARE OF PATIENT REQUESTING WOO
--- NOTE | 2016-12-25 23:24 | NUR ---
SYMMETREL UNAVAILABLE. DR. ROBERTS NOTIFIED.
[2016-12-26] VITALS: BP 135/59
[2016-12-26 06:33] LABS: BASO # 0.1 10*3/uL (0.0-0.1); BASO % 0.7 % (0.0-1.0); EOS # 0.3 10*3/uL (0.0-0.4); EOS % 4.9 % (1.0-4.0); HEMATOCRIT 31.2 % (37.0-47.0); HEMOGLOBIN 9.7 g/dl (12.0-16.0); LYMPH % 14.9 % (27.0-41.0); MEAN CELL VOLUME 95.4 fl (81.0-99.0); MEAN CORPUSCULAR HGB 29.7 pg (27.0-31.0); MEAN CORPUSCULAR HGB CONC 31.1 g/dl (33.0-37.0); MEAN PLATELET VOLUME 10.6 fl (9.6-12.3); MONO # 0.5 10*3/uL (0.1-1.0); MONO % 7.2 % (3.0-9.0); NEUT # 4.9 10*3/uL (2.3-7.9); PLATELET COUNT AUTOMATED 144 10*3/uL (130-400); RED BLOOD COUNT 3.27 10*6/uL (4.10-5.10); RED CELL DISTRI WIDTH 13.9 % (0-14.5); WHITE BLOOD COUNT 6.8 10*3/uL (4.8-10.8)
[2016-12-26 06:49] LABS: ACT PARTIAL THROMBO TIME 27.6 SECONDS (20.8-31.5); INTERNATIONAL NORM RATIO 0.9 (2.0-3.5)
[2016-12-26 06:52] LABS: ALBUMIN 2.7 gm/dl (3.1-4.5); CREATININE 2.83 mg/dL (0.55-1.02); PHOSPHOROUS 4.8 mg/dL (2.5-4.9); POTASSIUM 4.8 mmol/L (3.5-5.1); TOTAL PROTEIN 5.9 gm/dL (6.4-8.2)
[2016-12-26 08:00] VITALS: BP 141/67
--- NOTE | 2016-12-26 08:30 | NUR ---
Loss Control Manager in to talk to patient. Patient states lives at HOME with HER . There are 0 steps in the home. Physician: DR PERLA [facility] Patient's level of ADLs: MINIMAL ASSIST Patient has working utilities: YES DME: CANE/WALKER/WC Follow-up physician's appointment after d/c: PREFERS TO MAKE HER OWN APPT Does patient want to access PORTAL?: Discharge plan HOME. YESIKA GAUTAM PT IS GETTING HOME IV VANC FOR INFECTION IN BRAIN STIMULATOR. THIS HAS ALREADY CHARITY SET UP MEDICINE AIDE.
[2016-12-26 12:00] VITALS: BP 147/70
--- NOTE | 2016-12-26 12:16 | NUR ---
CALLED DR TOMPKINS MADE HIM AWARE THAT PATIENTS VANC THROUGH CAME BACK AT 38.9. HE IS AWARE AND NO NEW ORDERS WERE RECIEVED AT THIS TIME
--- NOTE | 2016-12-26 15:11 | NUR ---
PHYSICAL THERAPY PAtient evaluated on 5, full evaluation to follow. Continue with PT as per plan of care with fall, wound to scalp and acute debility precautions. Requests home with family as prior for d/c planning, not interested in SNF. Recommend complete home health services. PAtient is moderate complexity via chart review, tests and evaluation: 10912. Thank you for this referral. Nely Booth,PT
[2016-12-26 16:00] VITALS: BP 154/73
[2016-12-26 20:00] VITALS: BP 144/63
--- NOTE | 2016-12-26 22:06 | NUR ---
PATIENT REQUESTED MEDICATION FOR SLEEP, GIVEN PER PRN ORDER. IV BAG #4 HUNG.
--- NOTE | 2016-12-26 22:29 | NUR ---
URINE SENT TO LAB FOR LYTES, OSMOLAITY AND CREATNINE.
[2016-12-26 22:43] LABS: URINE CREATININE RANDOM 23.8 mg/dL
[2016-12-27] VITALS: BP 148/74
[2016-12-27 06:51] LABS: BASO % 0.6 % (0.0-1.0); EOS # 0.3 10*3/uL (0.0-0.4); HEMOGLOBIN 9.2 g/dl (12.0-16.0); LYMPH % 14.9 % (27.0-41.0); MEAN CORPUSCULAR HGB 30.8 pg (27.0-31.0); MEAN CORPUSCULAR HGB CONC 31.7 g/dl (33.0-37.0); MEAN PLATELET VOLUME 10.8 fl (9.6-12.3); MONO # 0.5 10*3/uL (0.1-1.0); MONO % 7.7 % (3.0-9.0); NEUT % 72.4 % (47.0-73.0); PLATELET COUNT AUTOMATED 135 10*3/uL (130-400); RED BLOOD COUNT 2.99 10*6/uL (4.10-5.10); RED CELL DISTRI WIDTH 13.7 % (0-14.5); WHITE BLOOD COUNT 6.9 10*3/uL (4.8-10.8)
--- NOTE | 2016-12-27 06:55 | NUR ---
PATIENT MEDICATED WITH TYLENOL PER PRN ORDER FOR C/O HEADACHE. RATED PAIN A 8/10 WITH 10 BEING THE WORST. SEE EMAR. REINFORCED USE OF CALL LIGHT.
[2016-12-27 07:30] LABS: POTASSIUM 4.5 mmol/L (3.5-5.1)
[2016-12-27 07:37] LABS: ALBUMIN 2.6 gm/dl (3.1-4.5); CREATININE 2.47 mg/dL (0.55-1.02); PHOSPHOROUS 4.1 mg/dL (2.5-4.9); TOTAL PROTEIN 5.9 gm/dL (6.4-8.2)
[2016-12-27 08:00] VITALS: BP 144/68
--- NOTE | 2016-12-27 08:51 | NUR ---
ELASTIC ASSEMBLER VS. PT DOES NOT WANT SNF STAY. WILL GO HOME IWTH [facility] BLENDER HELPER.
--- NOTE | 2016-12-27 09:25 | NUR ---
GIO MCKOY [id number] Please refer to the physician's history and physical for past medical history, comorbid conditions, and allergies. Diagnosis: ACUTE RENAL FAILURE Geoffrey Score: 17,MODERATE RISK WOUND DESCRIPTIONS: Location of the wound: right scalp Type of wound: surgical Thickness: Partial Size: 6.5cm x 2.0cm x <0.1cm Tunneling: none Undermining: none Sinus Tract: none Presence of Exudate: Amount: None Color: Red Odor: None Periwound Skin Appearance: Normal Wound edges: approximated with 11 sutures Pain (associated with wound): none at time of assessment How does patient state this happened? pt stated in april of 2016 she had internal brain stimulator put in both sides of her brain and the other side there was no problems but this side became infected. Dr. Palma and Dr. Colvin who is from [facility] and did the surgery is treating this areas with alcohol BID leave open to air. Surface the patient is resting on: Isoflex SKIN PREVENTION RECOMMENDATION: 1. Pressure redistribution support surface as appropriate 2. Elevate heels 3. Remove boots/TEDS every shift and reapply 4. Head of bed 30 degrees as tolerated 5. Assess nutrition and hydration 6. Manage moisture 7. Avoid the use of containment devices while in bed 8. Use absorptive products on surfaces limit layers of linens on bed 9. Turn and reposition every 1-2 hours in bed and every 1 hour in chair as tolerated 10. Weight shifts every 15 minutes while up in chair 11. Offloading with pillows or device to keep heels elevated off bed 12. Monitor skin at least every shift 13. Inspect under medical devices twice a day WOUND TREATMENT RECOMMENDATIONS: Cleanse area with alochol BID and leave open to air per patient request she stated those were her discharge instructions.
--- NOTE | 2016-12-27 10:00 | NUR ---
PHYSICAL THERAPY Tomas seen this AM for her therapy session, and did well Pt having IV Pole this gait. All transfers were CG X 1, no LOB. Then gait 85' X 1, MIN DISTRICT AGENT X 1, with cueing for gait, balance safety and having no LOB. Pt back supine in bed, call light and was pleased with her gait. BULL YUN TAX SERVICES MANAGER.
--- NOTE | 2016-12-27 10:18 | NUR ---
PT REQUESTING PERCOCET FOR PAIN, DR TOMPKINS CALLED TO REQUEST. INFORMED OF PT ALLERGY TO HYDROCODONE.
--- NOTE | 2016-12-27 10:36 | NUR ---
PRN PAIN MED GIVEN FOR 8/10 LEFT HIP PAIN.
--- NOTE | 2016-12-27 11:37 | NUR ---
PRN PAIN MED MINIMALLY EFFECTIVE, PT REPORTS HER PAIN 6/10 TO LEFT HIP.
[2016-12-27 12:00] VITALS: BP 163/84
--- NOTE | 2016-12-27 15:24 | NUR ---
Faxed patients OV resume order and clincals to [facility].
[2016-12-27 16:00] VITALS: BP 169/76
--- NOTE | 2016-12-27 16:07 | NUR ---
prn pain med given for 9/10 left hip pain.
--- NOTE | 2016-12-27 17:07 | NUR ---
prn PAIN MED EFFECTIVE, PT RATES PAIN 5/10 TO LEFT HIP.
--- NOTE | 2016-12-27 18:48 | NUR ---
PT C/O ACHING PAIN TO LEFT HIP. ORDER RECIEVED FROM DR TOMPKINS FOR K PAD.
[2016-12-27 20:00] VITALS: BP 146/75
--- NOTE | 2016-12-27 22:21 | NUR ---
PERCOCET GIVEN FOR C/O HIP PAIN. RATED PAIN A 5/10 WITH 10 BEING THE WORST. TYLENOL GIVEN EARLIER HELPED A LITTLE. SEE EMAR. REINFORCED USE OF CALL LIGHT
[2016-12-28] VITALS: BP 140/69
--- NOTE | 2016-12-28 01:30 | NUR ---
PATIENT RESTING QUIETLY. MEDICATION GIVEN EARLIER DECREASED PAIN IN L.HIP.
[2016-12-28 06:30] LABS: BASO # 0.1 10*3/uL (0.0-0.1); BASO % 0.6 % (0.0-1.0); EOS # 0.3 10*3/uL (0.0-0.4); EOS % 3.7 % (1.0-4.0); HEMATOCRIT 30.6 % (37.0-47.0); HEMOGLOBIN 9.8 g/dl (12.0-16.0); LYMPH # 0.8 10*3/uL (1.3-4.4); LYMPH % 9.7 % (27.0-41.0); MEAN CELL VOLUME 95.6 fl (81.0-99.0); MEAN CORPUSCULAR HGB 30.6 pg (27.0-31.0); MONO # 0.7 10*3/uL (0.1-1.0); MONO % 7.9 % (3.0-9.0); NEUT # 6.5 10*3/uL (2.3-7.9); NEUT % 77.7 % (47.0-73.0); PLATELET COUNT AUTOMATED 146 10*3/uL (130-400); RED CELL DISTRI WIDTH 13.3 % (0-14.5); WHITE BLOOD COUNT 8.4 10*3/uL (4.8-10.8)
[2016-12-28 07:16] LABS: ALBUMIN 2.9 gm/dl (3.1-4.5); POTASSIUM 4.4 mmol/L (3.5-5.1)
[2016-12-28 07:19] LABS: CREATININE 2.37 mg/dL (0.55-1.02); PHOSPHOROUS 3.9 mg/dL (2.5-4.9)
[2016-12-28 08:00] VITALS: BP 170/74
--- NOTE | 2016-12-28 08:00 | NUR ---
PT RSTING IN BED, NO DISTRESS NOTED. NO VOICED C/O. WILL MONITOR
[2016-12-28 12:00] VITALS: BP 136/56
--- NOTE | 2016-12-28 14:40 | NUR ---
PT REQUESTED AND GIVEN PERCOCET FOR C/O GEN PAIN. PT RATES PAIN 5/10. WILL MONITOR
[2016-12-28 16:00] VITALS: BP 174/84
--- NOTE | 2016-12-28 16:00 | NUR ---
PERCOCET EFFECTIVE. WILL MONITOR
[2016-12-28 17:33] VITALS: BP 160/80
--- NOTE | 2016-12-28 17:33 | NUR ---
PT BP RECHECKED, 160/80 MANUAL.
--- NOTE | 2016-12-28 19:50 | NUR ---
PT. ALERT AND ORIENTED X 3. PT. IN BED AT THIS TIME. LUNGS DIMINISHED, PT. DENIES SOB. S1S2, PPP, NO EDEMA, DENIES CP. PT. NORMOX4 QUADS, DENIES N/V/D. PT. IS AMBULATORY, AMBULATED DURING ASSESSMENT, GAIT STEADY, PT. DENIES DIZZINESS OR WEAKNESS, BUT STATES PAIN IN LEFT HIP RATED 5/10 AT THIS TIME. PT. REQUESTED PAIN MEDICINE WITH NIGHT TIME MEDS SO SHE CAN "SLEEP WITHOUT PAIN," PT. HAS ECCHY SITES TO BUE, THAT SHE STATES ARE "FROM BLOOD DRAWS," SURGICAL SITE ON HEAD IS SALT MACHINE OPERATOR WITH MARVIN - NO DRAINAGE NOTED, SITE CLEAN. PICC IN RT. ARM FLUSHES WELL, LIMB ALERT TO RT. ARM.
[2016-12-28 20:00] VITALS: BP 155/73
--- NOTE | 2016-12-28 21:54 | NUR ---
PERCOCET GIVEN AT THIS TIME FOR PTS. HIP PAIN 10/27. WILL MONITOR FOR EFFECTIVENESS.
--- NOTE | 2016-12-28 22:11 | NUR ---
PT. REQUESTED AMBIEN FOR SLEEP, PT. GIVEN AMBIEN AT THIS TIME. PT. STATED THAT PAIN IS GETTING "MILDLY BETTER," RATED 6/10 AT THIS TIME. WILL MONITOR FOR EFFECTS OF AMBIEN.
[2016-12-29] VITALS: BP 146/62
--- NOTE | 2016-12-29 04:40 | NUR ---
PT. GIVEN PRN PAIN MED AT THIS TIME FOR RT. HIP PAIN 10/27. PT. STATED THAT SHE ISN'T SURE IT WILL HELP, AND THAT SHE TYPICALLY GETS INJECTIONS FOR HER HIP. PT. STATED THAT SHE WILL TALK TO HER DR. IN THE MORNING.
[2016-12-29 06:39] LABS: BASO # 0.1 10*3/uL (0.0-0.1); BASO % 0.8 % (0.0-1.0); EOS # 0.3 10*3/uL (0.0-0.4); EOS % 3.7 % (1.0-4.0); HEMATOCRIT 31.2 % (37.0-47.0); HEMOGLOBIN 10.3 g/dl (12.0-16.0); LYMPH # 1.1 10*3/uL (1.3-4.4); LYMPH % 14.7 % (27.0-41.0); MEAN CELL VOLUME 91.8 fl (81.0-99.0); MEAN CORPUSCULAR HGB 30.3 pg (27.0-31.0); MEAN PLATELET VOLUME 9.9 fl (9.6-12.3); MONO # 0.6 10*3/uL (0.1-1.0); MONO % 7.7 % (3.0-9.0); NEUT # 5.4 10*3/uL (2.3-7.9); NEUT % 72.6 % (47.0-73.0); PLATELET COUNT AUTOMATED 169 10*3/uL (130-400); RED CELL DISTRI WIDTH 13.2 % (0-14.5); WHITE BLOOD COUNT 7.4 10*3/uL (4.8-10.8)
[2016-12-29 07:10] LABS: ALBUMIN 3.2 gm/dl (3.1-4.5); CREATININE 2.25 mg/dL (0.55-1.02); PHOSPHOROUS 3.6 mg/dL (2.5-4.9); POTASSIUM 4.2 mmol/L (3.5-5.1)
[2016-12-29 08:00] VITALS: BP 160/70
--- NOTE | 2016-12-29 08:49 | NUR ---
PT SITTING UP EATING BREAKFAST. NO DISTRESS NOTED. NO VOICED C/O. WILL MONITOR
[2016-12-29 12:00] VITALS: BP 140/70
[2016-12-29 16:00] VITALS: BP 149/78
--- NOTE | 2016-12-29 16:55 | NUR ---
PT REQUESTED AND GIVEN [PERCOCET FOR C/O HIP AND HEAD PAIN. PT RATES PAIN 5/10. WILL MONITOR
--- NOTE | 2016-12-29 17:52 | NUR ---
PT STATES THAT PERCOCET IS HELPING. WILL MONITOR
--- NOTE | 2016-12-29 19:30 | NUR ---
PT. AWAKE, ALERT, AND ORIENTED X 3 AT THIS TIME. PT. UP IN CHAIR WITH IN ROOM WITH HER. PT. DENIES SOB, OR CP AT THIS TIME. PT. C/O HIP PAIN AND REQUESTED PAIN MEDICATION WHEN IT IS DUE. CALL LIGHT WITHIN REACH, BED IN LOWEST POSITION, WHEELS LOCKED. SEE SHIFT ASSESSMENT.
[2016-12-29 20:00] VITALS: BP 154/81
--- NOTE | 2016-12-29 20:10 | NUR ---
SPOKE WITH DR. PERLA AT THIS TIME FOR PTS. REQUEST TO GO DOWN TO 4TH FLOOR TO SEE A FAMILY MEMBER BEFORE THEY WERE TRANSFERED. DR. PERLA IS OK WITH THIS.
--- NOTE | 2016-12-29 21:58 | NUR ---
PT. REQUESTED PERCOCET FOR HIP PAIN 09/26 AND AMBIEN TO HELP HER SLEEP. ADM. AT THIS TIME, WILL MONITOR FOR EFFECTIVENESS.
--- NOTE | 2016-12-29 22:30 | NUR ---
PT. STATED THAT PAIN MEDICATION WAS EFFECTIVE, RATED HIP PAIN AT 4/10.
[2016-12-30] VITALS: BP 147/76
[2016-12-30 06:18] LABS: BASO # 0.1 10*3/uL (0.0-0.1); BASO % 0.8 % (0.0-1.0); EOS # 0.3 10*3/uL (0.0-0.4); EOS % 5.2 % (1.0-4.0); HEMATOCRIT 31.7 % (37.0-47.0); HEMOGLOBIN 10.5 g/dl (12.0-16.0); LYMPH # 1.3 10*3/uL (1.3-4.4); LYMPH % 22.3 % (27.0-41.0); MEAN CELL VOLUME 91.9 fl (81.0-99.0); MEAN CORPUSCULAR HGB 30.4 pg (27.0-31.0); MEAN CORPUSCULAR HGB CONC 33.1 g/dl (33.0-37.0); MEAN PLATELET VOLUME 10.2 fl (9.6-12.3); MONO # 0.6 10*3/uL (0.1-1.0); MONO % 10.3 % (3.0-9.0); NEUT # 3.6 10*3/uL (2.3-7.9); NEUT % 60.9 % (47.0-73.0); PLATELET COUNT AUTOMATED 201 10*3/uL (130-400); RED BLOOD COUNT 3.45 10*6/uL (4.10-5.10); RED CELL DISTRI WIDTH 13.3 % (0-14.5); WHITE BLOOD COUNT 5.9 10*3/uL (4.8-10.8)
[2016-12-30 06:30] LABS: CREATININE 2.19 mg/dL (0.55-1.02); PHOSPHOROUS 3.7 mg/dL (2.5-4.9); POTASSIUM 3.9 mmol/L (3.5-5.1)
[2016-12-30 08:00] VITALS: BP 142/70
[2016-12-30 12:00] VITALS: BP 143/70
--- NOTE | 2016-12-30 13:12 | NUR ---
SPOKE WITH DANDRE CHASE CNP. SHE ADVISED TO ORDER CEFAZOLIN IV 2GM Q12. ORDERS WERE DOCUMENTED.
--- NOTE | 2016-12-30 13:17 | NUR ---
PT DOES NOT KNOW NAME OF [facility] THAT SUPPLIES HER HOME IV ATB. NOT HOME. SHE WILL HAVE HIM TRY TO FIND INFO WHEN HE GETS BACK LATER TODAY.
--- NOTE | 2016-12-30 13:36 | NUR ---
PHYSICAL THERAPY Pt was seen this AM 1:1 for her therapy session, said that she was ready to go, boyfrend present. All transfers were supervision x 1. Gait total 135' X 1, CGA X 1, and verbal cueing for gait safetry, no LOB. Pt having no complaints, no parkinsons gait. Back supine in bed, said that she may be D/C this afternoon. BULL YUN ROLL ON WORKER.
--- NOTE | 2016-12-30 15:41 | NUR ---
PHYSICAL THERAPY Patient presented to therapy with report of having a recent MRSA infection in the surgical site on her head. Patient performed supine to sitting and sit to stand transfers with SBA. Patient performed gait with W/W and SBA to CGA X 1 for 200' x 1. Patient was 1:1 with this TRUCK DRIVER RUBBISH COLLECTOR for 20 minutes. VAISHALI RODGERS TRUCK DRIVER RUBBISH COLLECTOR
[2016-12-30 17:08] VITALS: BP 129/75
[2016-12-30 20:00] VITALS: BP 157/70
--- NOTE | 2016-12-30 21:18 | NUR ---
PT MEDICATED WITH PO PERCOCET AND PO AMBIEN FOR C/O LEFT HIP/LEG PAIN 08/26 AND INSOMNIA. WILL MONITOR EFFECTIVENESS OF MEDICATIONS. CALL LIGHT LEFT IN REACH.
--- NOTE | 2016-12-30 22:34 | NUR ---
EARLIER MEDICATIONS APPEAR EFFECTIVE. PATIENT RESTING IN BED WITH EYES CLOSED. NO S/S OF DISTRESS NOTED. WILL MONITOR.
[2016-12-31] VITALS: BP 151/67
--- NOTE | 2016-12-31 02:36 | NUR ---
PATIENT ASSISTED UP TO BATHROOM AT THIS TIME. STEADY GAIT. ASSISTED BACK TO BED. CALL LIGHT LEFT IN REACH.
--- NOTE | 2016-12-31 05:23 | NUR ---
PATIENT REQUESTED AND RECEIVED PO PERCOCET PER PRN ORDER FOR C/O LEFT HIP PAIN 09/26. WILL MONITOR EFFECTIVENESS. CALL LIGHT LEFT WITHIN REACH.
--- NOTE | 2016-12-31 06:26 | NUR ---
EARLIER MEDICATION EFFECTIVE PER PATIENT. WILL CONTINUE TO MONITOR.
[2016-12-31 07:30] LABS: POTASSIUM 3.7 mmol/L (3.5-5.1)
[2016-12-31 07:34] LABS: CREATININE 2.11 mg/dL (0.55-1.02); PHOSPHOROUS 3.6 mg/dL (2.5-4.9)
[2016-12-31 08:00] VITALS: BP 138/64; BP 148/78
--- NOTE | 2016-12-31 08:08 | NUR ---
PHYSICAL THERAPY Patient presented to therapy with report of feeling good today and wanting to do therapy. Patient says the doctor reported that her MRSA infection is getting better and they have started her on a new anti-biotic. Patient says she thinks she is being discharged and going home soon. Patient performed supine to sit at EOB and sit to stand with SBA. Patient performed gait with with no assistive device and Close Supervision for 180' x 1. Patient had no LOB or other difficulty while performing gait. Patient performed seated ther ex at EOB for strengthening the bilateral LEs in order to improve functional mobility. Patient to continue physical therapy POC and progress as tolerated. Patient was 1:1 with this TEST CAR DRIVER for 25 minutes total. 12/31/2016 VAISHALI RODGERS TEST CAR DRIVER
--- NOTE | 2016-12-31 09:11 | NUR ---
A&O X3. ISAIAH. MUCOUS MEMBRANES DRY AND INTACT. MEDIA MARKETING SPECIALIST EQUAL. SKIN WARM, PINK DRY AND INTACT. WOUND ON RIGHT SIDE OF HEAD DRY AND INTACT. HEART SOUNDS NORMAL. GOOD PULSES THROUGHTOUT. LUNGS CLEAR THROUGHOUT. ABDOMEN SOFT, NON-TENDER, NON-DISTENDED. BS X4.
--- NOTE | 2016-12-31 10:42 | NUR ---
PT MEDICATED WITH TYLNEOL AT THIS TIME EPR PRN ORDER FOR COMPLAINTS OF HEADACHE. WIILL MONITOR.
[2016-12-31 12:00] VITALS: BP 148/68
--- NOTE | 2016-12-31 12:02 | NUR ---
DR CO[facility]
[2016-12-31 16:00] VITALS: BP 152/70
[2016-12-31] MEDS ORDERED: Rimactane,Rifa300 MG PO (16:21)
[2016-12-31] MEDS ORDERED: CEFAZOLIN2 GM/10 ML IV (16:21)
--- NOTE | 2016-12-31 16:40 | NUR ---
PATIENT REFUSING DISCHARGE PHOTOS DUE TO IN A CRISOSTOMO TO BE DISCHARGED HOME.
--- NOTE | 2016-12-31 16:45 | NUR ---
Discharge instructions reviewed with patient/family. Patient receptive and verbalizes understanding. Follow-up care arranged. Written instructions given to patient/family. PICC LINE REMAINS PATENT IN RIGHT ARM. PICKED UP BY FAMILY MEMBER. TAKEN OFF FLOOR BY WHEELCHAIR. NOTIFIED AUTOMOBILE MECHANIC SUPERVISOR OF NEED FOR ANTIBIOTIC TOMORROW (MESSAGE SENT). HU MARIA
--- NOTE | 2017-01-01 07:51 | NUR ---
PHYSICAL THERAPY CO-SIGN I approve of the Phyical Therapy notes written above. BRENTON MCKOY PT
--- NOTE | 2017-01-01 09:22 | NUR ---
Faxed home health order and clincals to [facility] at [facility]. PARVIN Soler working on home IV ATB set up.
--- NOTE | 2017-01-02 09:02 | NUR ---
REC'D ORDER YESTERDAY AM 01-01-17 FOR HOME IV CEFAZOLIN 2GM BID X28 DOSES. PT USES [facility]. SPOKE WITH DESTINY THERE AND INFO FAXED. SHE WILL CALL BACK AFTER SHE RUNS HER BENEFITS. I CALLED BACK AT 1130 YESTERDAY AND STILL DID NOT HAVE BENEFITS RUN. CALLED AGAIN AT 1330 AND NOONE ANSWERED. VOICE MAIL LEFT BUT DID NOT RETURN OUR CALL. [phone] FAX [phone] SPOKE WITH BEATA AT [facility] THIS AM AND MEDS WERE DELIVERED AND STARTED LAST PM.
== END 2016-12-31 16:45 | disposition home health service (06) | DRG 683 ==
LOC: ED 14:40 → EDHOLD 17:12 → 5E 17:12
PROVIDERS: Family Medicine; Internal Medicine; Nurse Practitioner; ADMIT Internal Medicine
DX: N17.0 Acute kidney failure with tubular necrosis (principal); E87.2 Acidosis; G20 Parkinson's disease; E87.8 Other disorders of electrolyte and fluid balance, not elsewhere classified; G47.00 Insomnia, unspecified; T85.73 Infection and inflammatory reaction due to nervous system devices, implants and graft; T36.8X5A Adverse effect of other systemic antibiotics, initial encounter; N14.1 Nephropathy induced by other drugs, medicaments and biological substances; E87.5 Hyperkalemia; F17.200 Nicotine dependence, unspecified, uncomplicated; G89.29 Other chronic pain; M50.10 Cervical disc disorder with radiculopathy, unspecified cervical region; F32.9 Major depressive disorder, single episode, unspecified; F41.1 Generalized anxiety disorder; E78.00 Pure hypercholesterolemia, unspecified; F02.80 Dementia in other diseases classified elsewhere, unspecified severity, without behavioral disturbance, psychotic disturbance, mood disturbance, and anxiety; R79.89 Other specified abnormal findings of blood chemistry; R00.1 Bradycardia, unspecified; R74.8 Abnormal levels of other serum enzymes; D64.9 Anemia, unspecified; Z71.6 Tobacco abuse counseling; A49.02 Methicillin resistant Staphylococcus aureus infection, unspecified site; E55.9 Vitamin D deficiency, unspecified; N32.81 Overactive bladder; T39.395A Adverse effect of other nonsteroidal anti-inflammatory drugs [NSAID], initial encounter; Y83.8 Other surgical procedures as the cause of abnormal reaction of the patient, or of later complication, without mention of misadventure at the time of the procedure; N18.9 Chronic kidney disease, unspecified; R29.810 Facial weakness; M25.552 Pain in left hip; R79.82 Elevated C-reactive protein (CRP); E66.9 Obesity, unspecified; I12.9 Hypertensive chronic kidney disease with stage 1 through stage 4 chronic kidney disease, or unspecified chronic kidney disease; Y92.89 Other specified places as the place of occurrence of the external cause; Z90.49 Acquired absence of other specified parts of digestive tract; Z90.710 Acquired absence of both cervix and uterus; Z90.89 Acquired absence of other organs; Z82.49 Family history of ischemic heart disease and other diseases of the circulatory system; Z80.1 Family history of malignant neoplasm of trachea, bronchus and lung; Z84.89 Family history of other specified conditions; Z88.8 Allergy status to other drugs, medicaments and biological substances; Z88.6 Allergy status to analgesic agent; Z79.899 Other long term (current) drug therapy; Z68.25 Body mass index [BMI] 25.0-25.9, adult

== ENCOUNTER → 2017-09-08 | Outpatient (CLI) | payer OTHER ==
[~2017-09-08] MED LIST changes: +CEFAZOLIN2 GM/10 ML IV; +NORCO 5-325 TA1 EACH PO; +Rimactane,Rifa300 MG PO
--- NOTE | ~2017-09-08 | EKG ---
[place], [place] ELECTROCARDIOGRAM REPORT NAME: GIO MCKOY UNIT #: [id number] ROOM: DOCTOR: EPIPHANY DRAFT REPORT BIRTHDATE: [birth year] [facility] Test Date: 2017-09-08 Test Time: 11:07:30 Pat Name: GIO MCKOY Department: Room: Gender: F Thiokol Operator: : [id number] Requested By: JOSHUA WILKINS Order Number: [id number] Reading MD: Tanner Lott MD Measurements Intervals [place] Rate: 53 P: 63 IL: 159 QRS: 48 QRSD: 99 T: 53 QT: 431 QTc: 405 Interpretive Statements Sinus rhythm Probable left atrial enlargement Electronically Signed On 09-08-2017 19:21:23 PDT by Tanner Lott MD CM:EKGRPT:ELECTROCARDIOGRAM REPORT 1107 20 JOSHUA LE DRAFT REPORT JOSHUA WILKINS
[2017-09-08 11:59] LABS: BILIRUBIN 1+ (NEGATIVE); BLOOD NEGATIVE (NEGATIVE); CLARITY SL CLOUDY (CLEAR); COLOR YELLOW (YELLOW); GLUCOSE NEGATIVE (NEGATIVE); KETONE TRACE (NEGATIVE); LEUKO ESTERASE TRACE (NEGATIVE); NITRITE NEGATIVE (NEGATIVE); PH 6.5 (5.0-9.0); SPECIFIC GRAVITY 1.025 (1.005-1.030)
[2017-09-08 12:00] LABS: BASO # 0.1 10*3/uL (0.0-0.1); BASO % 0.8 % (0.0-1.0); EOS # 0.3 10*3/uL (0.0-0.4); EOS % 2.9 % (1.0-4.0); HEMOGLOBIN 13.4 g/dl (12.0-16.0); LYMPH # 1.6 10*3/uL (1.3-4.4); LYMPH % 17.1 % (27.0-41.0); MEAN CELL VOLUME 96.8 fl (81.0-99.0); MEAN CORPUSCULAR HGB 30.9 pg (27.0-31.0); MEAN CORPUSCULAR HGB CONC 31.9 g/dl (33.0-37.0); MEAN PLATELET VOLUME 10.2 fl (9.6-12.3); MONO # 0.5 10*3/uL (0.1-1.0); MONO % 5.5 % (3.0-9.0); NEUT # 6.7 10*3/uL (2.3-7.9); NEUT % 73.1 % (47.0-73.0); PLATELET COUNT AUTOMATED 237 10*3/uL (130-400); RED BLOOD COUNT 4.34 10*6/uL (4.10-5.10); RED CELL DISTRI WIDTH 13.4 % (0-14.5); WHITE BLOOD COUNT 9.1 10*3/uL (4.8-10.8)
[2017-09-08 12:16] LABS: BACTERIA 1+
[2017-09-08 12:25] LABS: ALBUMIN 3.6 gm/dl (3.1-4.5); CREATININE 1.15 mg/dL (0.55-1.02); TOTAL PROTEIN 6.5 gm/dL (6.4-8.2)
[2017-09-08 12:37] LABS: ACT PARTIAL THROMBO TIME 23.7 SECONDS (20.8-31.5); INTERNATIONAL NORM RATIO 0.9 (2.0-3.5)
== END ==
LOC: LAB 10:50
PROVIDERS: Neurological Surgery
DX: Z01.818 Encounter for other preprocedural examination (principal); I70.0 Atherosclerosis of aorta; G20 Parkinson's disease; Z79.01 Long term (current) use of anticoagulants; Z79.2 Long term (current) use of antibiotics

== ENCOUNTER → 2017-11-26 | Outpatient (CLI) | payer OTHER | END | disposition home or self-care (01) | LOC: MAMMO 11-25 16:40 | DX: Z12.31 Encounter for screening mammogram for malignant neoplasm of breast (principal) ==

== ENCOUNTER 2018-03-05 14:58 | Emergency (ER) | payer OTHER ==
[~2018-03-05] VITALS: Ht 162.5 cm; Wt 83.0 kg
[2018-03-05 14:59] VITALS: BP 96/48
== END 2018-03-05 16:53 | disposition home or self-care (01) ==
LOC: ED 14:58
DX: S09.90XA Unspecified injury of head, initial encounter (principal); J44.9 Chronic obstructive pulmonary disease, unspecified; E78.5 Hyperlipidemia, unspecified; G20 Parkinson's disease; F17.200 Nicotine dependence, unspecified, uncomplicated; Z79.899 Other long term (current) drug therapy; Z88.6 Allergy status to analgesic agent; Z88.1 Allergy status to other antibiotic agents; W01.198A Fall on same level from slipping, tripping and stumbling with subsequent striking against other object, initial encounter; Y93.89 Activity, other specified; Y92.89 Other specified places as the place of occurrence of the external cause; Y99.8 Other external cause status

== ENCOUNTER → 2018-06-11 | Outpatient (CLI) | payer OTHER ==
[~2018-06-11] MED LIST changes: +ALEVE220 M1 PO; +EXCEDRIN MIGRA1 EAC1 PO; +IBU800 MG PO; +LEVAQUIN500 M2 PO; +MEDROL DOSEPAK4 MG PO; +OMEPRAZOLE40 MG PO; +QUETIAPINE FUM100 M1 PO; +ROBITUSSIN DM 101 OZ PO; +TOPIRAMATE25 M1 PO; +TYLENOL325 M1 PO
== END | disposition home or self-care (01) ==
LOC: US 14:29
DX: M79.601 Pain in right arm (principal)

== ENCOUNTER → 2018-09-02 | Outpatient (CLI) | payer MEDICARE | END | disposition home or self-care (01) | LOC: ORTHO 00:41 | DX: M25.461 Effusion, right knee (principal) ==

== ENCOUNTER 2019-04-24 19:01 | Emergency (ER) | payer MEDICARE ==
[~2019-04-24] VITALS: Ht 162.5 cm; Wt 79.4 kg
[2019-04-24 19:44] LABS: BASO # 0.1 10*3/uL (0.0-0.1); BASO % 0.8 % (0.0-1.0); EOS # 0.3 10*3/uL (0.0-0.4); EOS % 2.4 % (1.0-4.0); HEMATOCRIT 41.8 % (37.0-47.0); HEMOGLOBIN 13.5 g/dl (12.0-16.0); LYMPH # 1.4 10*3/uL (1.3-4.4); LYMPH % 13.3 % (27.0-41.0); MEAN CELL VOLUME 96.1 fl (81.0-99.0); MEAN CORPUSCULAR HGB CONC 32.3 g/dl (33.0-37.0); MEAN PLATELET VOLUME 10.5 fl (9.6-12.3); MONO # 0.6 10*3/uL (0.1-1.0); MONO % 5.9 % (3.0-9.0); NEUT # 8.2 10*3/uL (2.3-7.9); NEUT % 77.3 % (47.0-73.0); PLATELET COUNT AUTOMATED 194 10*3/uL (130-400); RED BLOOD COUNT 4.35 10*6/uL (4.10-5.10); RED CELL DISTRI WIDTH 13.2 % (0-14.5); WHITE BLOOD COUNT 10.6 10*3/uL (4.8-10.8)
[2019-04-24 19:58] LABS: ALBUMIN 3.4 gm/dl (3.1-4.5); ALKALINE PHOSPHATASE 124 U/L (45-117); BUN 10 mg/dl (7-24); CHLORIDE 110 mmol/L (98-107); CREATININE 0.64 mg/dL (0.55-1.02); POTASSIUM 3.9 mmol/L (3.5-5.1); SGOT/AST 6 IU/L (3-35); SGPT/ALT 19 U/L (12-78); SODIUM 140 mmol/L (136-145); TOTAL PROTEIN 6.3 gm/dL (6.4-8.2)
[2019-04-24 20:03] LABS: BILIRUBIN NEGATIVE (NEGATIVE); BLOOD NEGATIVE (NEGATIVE); CLARITY SL CLOUDY (CLEAR); COLOR YELLOW (YELLOW); GLUCOSE NEGATIVE (NEGATIVE); KETONE 2+ (NEGATIVE); LEUKO ESTERASE NEGATIVE (NEGATIVE); NITRITE NEGATIVE (NEGATIVE); UROBILINOGEN 0.2 E.U./dl (0.2-1.0)
[2019-04-24 20:05] LABS: BACTERIA 4+
[2019-04-24 21:14] VITALS: BP 126/55
[2019-04-24] MEDS ORDERED: FLAGYL500 MG PO (22:49)
[2019-04-24] MEDS ORDERED: CIPRO500 MG PO (22:49)
== END 2019-04-24 23:37 | disposition home or self-care (01) ==
LOC: ED 19:01
PROVIDERS: Physician Assistant
DX: K57.32 Diverticulitis of large intestine without perforation or abscess without bleeding (principal); Z88.8 Allergy status to other drugs, medicaments and biological substances; Z88.5 Allergy status to narcotic agent; Z79.899 Other long term (current) drug therapy; Z79.2 Long term (current) use of antibiotics; Z79.82 Long term (current) use of aspirin; Z90.49 Acquired absence of other specified parts of digestive tract

== ENCOUNTER 2019-04-26 13:04 | Inpatient (IN) | payer OTHER ==
[~2019-04-26] VITALS: Ht 162.6 cm; Wt 75.4 kg
[~2019-04-26 13:04] MED LIST changes: +CIPRO500 MG PO; +FLAGYL500 MG PO
--- NOTE | 2019-04-26 13:30 | NUR ---
Time: 1329 A 68 year old FEMALE admitted to under services of DR. PAN LEAHY,ERICKA. Pt. arrived via wheel chair from [place]. Chief complaint: NAUSEA/VOMITING,ABDOMINAL PAIN. JAUN MONROY
[2019-04-26] MEDS ORDERED: IBU800 MG PO (14:25)
[2019-04-26 15:07] LABS: BASO # 0.1 10*3/uL (0.0-0.1); BASO % 0.6 % (0.0-1.0); EOS # 0.1 10*3/uL (0.0-0.4); EOS % 1.6 % (1.0-4.0); HEMATOCRIT 41.9 % (37.0-47.0); HEMOGLOBIN 13.5 g/dl (12.0-16.0); LYMPH # 0.9 10*3/uL (1.3-4.4); LYMPH % 10.6 % (27.0-41.0); MEAN CELL VOLUME 96.5 fl (81.0-99.0); MEAN CORPUSCULAR HGB 31.1 pg (27.0-31.0); MEAN CORPUSCULAR HGB CONC 32.2 g/dl (33.0-37.0); MEAN PLATELET VOLUME 10.4 fl (9.6-12.3); MONO # 0.5 10*3/uL (0.1-1.0); MONO % 5.8 % (3.0-9.0); NEUT # 7.2 10*3/uL (2.3-7.9); NEUT % 81.2 % (47.0-73.0); PLATELET COUNT AUTOMATED 200 10*3/uL (130-400); RED BLOOD COUNT 4.34 10*6/uL (4.10-5.10); RED CELL DISTRI WIDTH 13.4 % (0-14.5); WHITE BLOOD COUNT 8.8 10*3/uL (4.8-10.8)
[2019-04-26 15:28] LABS: ALBUMIN 3.4 gm/dl (3.1-4.5); ALKALINE PHOSPHATASE 128 U/L (45-117); BUN 7 mg/dl (7-24); CHLORIDE 107 mmol/L (98-107); CREATININE 0.68 mg/dL (0.55-1.02); POTASSIUM 3.5 mmol/L (3.5-5.1); SGOT/AST 8 IU/L (3-35); SGPT/ALT 8 U/L (12-78); SODIUM 140 mmol/L (136-145); TOTAL PROTEIN 6.5 gm/dL (6.4-8.2)
[2019-04-26 16:00] VITALS: BP 145/81
--- NOTE | 2019-04-26 18:26 | NUR ---
PATIENT C/O ABDOMINAL PAIN MEDICATED IBUPROFEN PER PT REQUEST.
[2019-04-26 20:00] VITALS: BP 154/71
--- NOTE | 2019-04-26 20:30 | NUR ---
PT MEDICATED W/ZOFRAN FOR C/O NAUSEA AND TYLENOL FOR CO LOWER ABD PAIN. WILL MONITOR FOR EFFECTIVENESS. CALL LIGHT IN REACH.
--- NOTE | 2019-04-26 22:21 | NUR ---
PT STATES ZOFRAN/TYLENOL WERE EFFECTIVE. CALL LIGHT IN REACH.
--- NOTE | 2019-04-26 22:26 | NUR ---
PT MEDICATED W/AMBIEN PER PT REQUEST TO HELP PROMOTE SLEEP.
--- NOTE | 2019-04-26 23:15 | NUR ---
PT SLEEPING IN RECLINER CHAIR PER REQUEST AT THIS TIME. PT AWAKENED EASILY. NO S/S OF DISTRESS NOTED. PT REQUESTING PAIN MED. THIS NURSE BROUGHT A MOTRIN BACK TO ROOM. PT REFUSING. PT STATES, "I WANT A PAIN SHOT, CALL DR. PERLA." WILL NOTIFY RESIDENT RN INFORMATICS.
--- NOTE | 2019-04-26 23:20 | NUR ---
DR. MOSLEY PHONE RE PT REQUEST FOR PAIN MED. T.O. RCVD FOR DILAUDID 0.25ML IVP X1 NOW.
--- NOTE | 2019-04-26 23:55 | NUR ---
PT SLEEPING IN CHAIR WHEN THIS NURSE ENTERED ROOM TO ADMINISTER ONE TIME DILAUDID DOSE. PT TEACHING GIVEN ON PAIN MED AND ONE TIME DOSE. PT ASKING FOR DEMEROL. PT REMINDED SHE IS TO ONLY RECEIVE A ONE TIME DOSE OF DILAUDID. CALL LIGHT IN REACH.
[2019-04-27] VITALS: BP 153/71
--- NOTE | 2019-04-27 07:56 | NUR ---
PHYSICAL THERAPY Screen received pt admitted with diverticulitis and dehydration please consult PT if pt has a decline in functional status from baseline thank you Grecia Bill PT
[2019-04-27 08:00] VITALS: BP 107/57
--- NOTE | 2019-04-27 08:00 | NUR ---
Patient resting quietly with no c/o discomfort. Respirations easy and regular. Vital signs stable. No overt distress. ISADORA WEISS
--- NOTE | 2019-04-27 09:30 | NUR ---
Apprentice Cook in to talk to patient. Patient states lives at home with her . There are 0 steps in the home. Physician: Dr. Dayron Palma Pharmacy: [facility] Home health services: would like OV on discharge Patient's level of ADLs: MINIMAL ASSIST Patient has working utilities: yes DME: walker, cane, hover round Follow-up physician's appointment after d/c: she prefers to make her own follow up appt after discharge Does patient want to access PORTAL?: no Discharge plan discussed with patient. She lives at home with her . She needs minimal assistance with her ADLs and uses a walker and a cane but normally gets around in the hover round. Discussed short term SNF and she refuses. Discussed home health care services and she is agreeable. When provided with a list of agencies she chose [facility] as she has had them in the past. She also has [facility] for 3 hours daily 5 days a week. When medically stable she will be discharged to home. She states her will provide transportation on discharge. DORENE GRAVES
[2019-04-27 12:00] VITALS: BP 108/58
--- NOTE | 2019-04-27 12:49 | NUR ---
MEDICATED WITH PO IBUPROFEN ORDERED PER PT REQUEST FOR C/O ABDOMINAL PAIN RATED 5/10.
--- NOTE | 2019-04-27 14:00 | NUR ---
MEDICATION NOT EFFECTIVE.
--- NOTE | 2019-04-27 14:10 | NUR ---
DR PAN IRIZARRY FOR CODE STATUS/PAIN MED.
--- NOTE | 2019-04-27 14:39 | NUR ---
Nursing screen received and chart reviewed. Patient admitted with diverticulosis and dehydration. If patient should have a decline in ADLs then refer to occupational therapy. Thank you. Zenaida Schulz OTR/l
--- NOTE | 2019-04-27 15:05 | NUR ---
PT C/O LOWER ABDOMINAL PAIN, RATES PAIN 5 ON PAIN SCALE 0-10. MEDICATED WITH TYLENOL PO PER PRN ORDER, SEE EMAR. IVF INFUSING WITH NO PROBLEM. CALL LIGHT IN REACH. SEE SHIFT ASSESSMENT.
[2019-04-27 16:00] VITALS: BP 96/60
--- NOTE | 2019-04-27 19:00 | NUR ---
PT C/O LOWER ABDOMINAL PAIN, RATES PAIN 9 ON PAIN SCALE 0-10. MEDICATED WITH DILAUDID IV PER PRN ORDER, SEE EMAR. IVF INFUSING WITH NO PROBLEM. CALL LIGHT IN REACH.
[2019-04-27 20:00] VITALS: BP 109/58
[2019-04-28] VITALS: BP 127/55
--- NOTE | 2019-04-28 03:36 | NUR ---
PT MEDICATED WITH PRN TYLENOL FOR C/O ABDOMINAL PAIN RATED A 4/10. WILL MONITOR FOR EFFECTIVENESS.
[2019-04-28 08:00] VITALS: BP 125/68
--- NOTE | 2019-04-28 08:40 | NUR ---
PT SITTING UP IN RECLINER CHAIR. RESP-EASY AND REGULAR. OLD SITE WAS PULLED OUT. IV started right hand with #22 angiocath after 2 attempts. The IV site was prepped with Chloraprep. Heparin lock attached. IV solution NS infusing at 80 cc/hr. Sterile dressing applied. Patient tolerated precedure well. Procedure performed according to [facility] policy & procedure. TOLERATED ROUTINE MED WITH NO PROBLEM. CALL LIGHT IN REACH. SEE SHIFT ASSESSMENT. EMERSON COREY R
--- NOTE | 2019-04-28 09:26 | NUR ---
CALLED DR. PERLA AWARE PT C/O L GROIN PAIN, STATES TYLENOL AND MOTRIN ISN'T EFFECTIVE. ORDER TAKEN AND REVIEWED.
--- NOTE | 2019-04-28 09:53 | NUR ---
MEDICATED WITH PERCOCET PO PER PRN ORDER FOR C/O LEFT GROIN PAIN, RATES PAIN 10 ON PAIN SCALE 0-10. CALL LIGHT IN REACH.
--- NOTE | 2019-04-28 10:45 | NUR ---
PT RESTING IN CHAIR. STATES PAIN MEDICATION HELPS. IVF INFUSING WITH NO PROBLEM. CALL LIGHT IN REACH.
--- NOTE | 2019-04-28 11:19 | NUR ---
CALLED DR. COLON AWARE OF CONSULT. HE WILL SEE HER LATER.
--- NOTE | 2019-04-28 11:56 | NUR ---
MEDICATED WITH TYLENOL PO PER PT REQUEST. C/O LEFT GROIN PAIN, RATES PAIN 9 ON PAIN SCALE 0-10. CALL LIGHT IN REACH. SEE EMAR.
[2019-04-28 12:00] VITALS: BP 140/67
--- NOTE | 2019-04-28 13:15 | NUR ---
RESTING IN BED WITH VISITOR AT HER SIDE. RESP-EASY AND REGULAR. TOLERATED ROUTINE MED WITH NO PROBLEM. CALL LIGHT IN REACH. NO C/O AT THIS TIME.
[2019-04-28 16:00] VITALS: BP 124/65
--- NOTE | 2019-04-28 16:00 | NUR ---
TOLERATED ROUTINE MEDS WITH NO PROBLEM. NO C/O AT THIS TIME. CALL LIGHT IN REACH. SEE SHIFT ASSESSMENT.
--- NOTE | 2019-04-28 17:40 | NUR ---
PT C/O LEFT GROIN PAIN AND LEG PAIN, RATES PAIN 9 ON PAIN SCALE 0-10. MEDICATED WITH PERCOCET PO PER PRN ORDER, SEE EMAR. CALL LIGHT IN REACH.
--- NOTE | 2019-04-28 18:36 | NUR ---
CALLED DR. PERLA MADE AWARE PT STATING PAIN MEDICATION ISN'T HELPING. SHE WANTS SOMETHING ELSE OR INCREASE IN MEDICATION. ORDER TAKEN AND REVIEWED.
--- NOTE | 2019-04-28 19:16 | NUR ---
24 HR CHART CHECK COMPLETE
--- NOTE | 2019-04-28 19:20 | NUR ---
PT IS RESTING IN BED AT THIS TIME. SHE IS COMPLAINING OF ABDOMINAL PAIN RATED AN 8/10. WILL MEDICATE WITH ONE TIME DOSE OF DILAUDID PER ORDER. PT STATES THAT SHE OTHERWISE FEELS OKAY. RESPS ARE EASY AND NONLABORED, BS NORMOACTIVE X4. BED IS LOW AND ALARMED, CALL LIGHT WITHIN REACH. WILL CONTINUE TO MONITOR.
--- NOTE | 2019-04-28 19:43 | NUR ---
PT MEDICATED WITH ONE TIME DOSE OF DILAUDID FOR C/O PAIN RATED AN 8/10. WILL MONITOR FOR EFFECTIVENESS.
[2019-04-28 20:00] VITALS: BP 138/63
--- NOTE | 2019-04-28 20:30 | NUR ---
PT RESTING COMFORTABLY WITH EYES CLOSED. NO S/S OF DISTRESS NOTED. DILAUDID EFFECTIVE.
[2019-04-29 06:17] LABS: BASO % 0.6 % (0.0-1.0); EOS # 0.2 10*3/uL (0.0-0.4); EOS % 3.1 % (1.0-4.0); HEMATOCRIT 37.3 % (37.0-47.0); HEMOGLOBIN 12.1 g/dl (12.0-16.0); LYMPH % 14.1 % (27.0-41.0); MEAN CORPUSCULAR HGB 30.5 pg (27.0-31.0); MEAN CORPUSCULAR HGB CONC 32.4 g/dl (33.0-37.0); MEAN PLATELET VOLUME 10.2 fl (9.6-12.3); MONO # 0.6 10*3/uL (0.1-1.0); MONO % 8.1 % (3.0-9.0); NEUT # 5.2 10*3/uL (2.3-7.9); NEUT % 73.8 % (47.0-73.0); PLATELET COUNT AUTOMATED 197 10*3/uL (130-400); RED BLOOD COUNT 3.97 10*6/uL (4.10-5.10); RED CELL DISTRI WIDTH 13.2 % (0-14.5)
[2019-04-29 06:49] LABS: ALBUMIN 3.1 gm/dl (3.1-4.5); BUN 5 mg/dl (7-24); CHLORIDE 111 mmol/L (98-107); SGOT/AST 10 IU/L (3-35); SODIUM 142 mmol/L (136-145)
[2019-04-29 06:51] LABS: ALKALINE PHOSPHATASE 98 U/L (45-117); CREATININE 0.51 mg/dL (0.55-1.02); SGPT/ALT 9 U/L (12-78); TOTAL PROTEIN 5.4 gm/dL (6.4-8.2)
[2019-04-29 08:00] VITALS: BP 144/67
--- NOTE | 2019-04-29 08:35 | NUR ---
PT C/O LOWER ABDOMINAL PAIN TO LEFT GROIN AREA, RATES PAIN 10 ON PAIN SCALE 0-10. MEDICATED WITH PERCOCET PO PER PRN ORDER, SEE EMAR. TOLERATED ROUTINE MED WITH NO PROBLEM. IVF INFUSING WITH NO PROBLEM. CALL LIGHT IN REACH. SEE SHIFT ASSESSMENT.
--- NOTE | 2019-04-29 09:30 | NUR ---
PT RESTING IN BED WITH EYES CLOSED. MEDICATION SEEMS TO BE EFFECTIVE. CALL LIGHT IN REACH. BED ALARM ON.
--- NOTE | 2019-04-29 13:23 | NUR ---
PT ASSISTED UP TO BSC AND BACK TO BED. RESP-EASY AND REGULAR. CALL LIGHT IN REACH. BED ALARM ON.,
--- NOTE | 2019-04-29 16:35 | NUR ---
Discharge instructions reviewed with patient/family. Patient receptive and verbalizes understanding. Follow-up care arranged. Written instructions given to patient/family. HEPLOCK REMOVED 2X2 APPLIED. ESCORTED VIA WHEELCHAIR FOR DISCHARGE. EMERSON COREY R
--- NOTE | 2019-04-30 12:07 | NUR ---
Faxed new home health order to [facility]
== END 2019-04-29 16:35 | disposition home health service (06) | DRG 392 ==
LOC: 5E 13:04
PROVIDERS: ADMIT Internal Medicine
DX: K57.32 Diverticulitis of large intestine without perforation or abscess without bleeding (principal); F33.1 Major depressive disorder, recurrent, moderate; E86.0 Dehydration; I25.10 Atherosclerotic heart disease of native coronary artery without angina pectoris; M79.7 Fibromyalgia; M19.90 Unspecified osteoarthritis, unspecified site; G51.0 Bell's palsy; G43.909 Migraine, unspecified, not intractable, without status migrainosus; N32.81 Overactive bladder; E78.5 Hyperlipidemia, unspecified; G20 Parkinson's disease; D64.9 Anemia, unspecified; M54.9 Dorsalgia, unspecified; G89.29 Other chronic pain; J43.9 Emphysema, unspecified; F02.80 Dementia in other diseases classified elsewhere, unspecified severity, without behavioral disturbance, psychotic disturbance, mood disturbance, and anxiety; E55.9 Vitamin D deficiency, unspecified; E78.00 Pure hypercholesterolemia, unspecified; F41.1 Generalized anxiety disorder; K59.00 Constipation, unspecified; Z72.0 Tobacco use; Z90.710 Acquired absence of both cervix and uterus; Z90.49 Acquired absence of other specified parts of digestive tract; Z82.49 Family history of ischemic heart disease and other diseases of the circulatory system; Z88.8 Allergy status to other drugs, medicaments and biological substances; Z71.6 Tobacco abuse counseling; Z80.1 Family history of malignant neoplasm of trachea, bronchus and lung

== ENCOUNTER 2019-05-01 23:43 | Inpatient (IN) | payer OTHER ==
[~2019-05-01] VITALS: Ht 160 cm; Wt 78.7 kg
[2019-05-01 23:49] VITALS: BP 94/51
[2019-05-02 00:08] LABS: BASO # 0.1 10*3/uL (0.0-0.1); BASO % 0.6 % (0.0-1.0); EOS # 0.4 10*3/uL (0.0-0.4); EOS % 3.4 % (1.0-4.0); HEMATOCRIT 40.9 % (37.0-47.0); HEMOGLOBIN 13.5 g/dl (12.0-16.0); LYMPH # 1.6 10*3/uL (1.3-4.4); MEAN CELL VOLUME 93.8 fl (81.0-99.0); MEAN PLATELET VOLUME 10.2 fl (9.6-12.3); MONO # 0.7 10*3/uL (0.1-1.0); MONO % 6.3 % (3.0-9.0); NEUT # 7.8 10*3/uL (2.3-7.9); NEUT % 74.3 % (47.0-73.0); PLATELET COUNT AUTOMATED 227 10*3/uL (130-400); RED BLOOD COUNT 4.36 10*6/uL (4.10-5.10); RED CELL DISTRI WIDTH 13.7 % (0-14.5); WHITE BLOOD COUNT 10.5 10*3/uL (4.8-10.8)
[2019-05-02 00:22] LABS: ACT PARTIAL THROMBO TIME 26.4 SECONDS (20.0-32.1); INTERNATIONAL NORM RATIO 0.9 (2.0-3.5)
[2019-05-02 00:25] LABS: ALBUMIN 3.1 gm/dl (3.1-4.5); ALKALINE PHOSPHATASE 106 U/L (45-117); BUN 8 mg/dl (7-24); CHLORIDE 111 mmol/L (98-107); CREATININE 0.68 mg/dL (0.55-1.02); SGOT/AST 19 IU/L (3-35); SGPT/ALT 10 U/L (12-78); SODIUM 143 mmol/L (136-145); TOTAL PROTEIN 5.8 gm/dL (6.4-8.2)
[2019-05-02 00:26] LABS: TROPONIN I < 0.015 ng/ml (<0.045)
[2019-05-02 02:40] VITALS: BP 109/67
[2019-05-02] MEDS ORDERED: PREGABALIN50 MG PO (03:12)
[2019-05-02] MEDS ORDERED: ASPIRIN ADULT L81 M1 PO (03:14)
[2019-05-02 12:00] VITALS: BP 109/75
[2019-05-02 16:00] VITALS: BP 96/58
[2019-05-02 20:00] VITALS: BP 105/58
[2019-05-03] VITALS: BP 132/67
[2019-05-03 09:25] LABS: BASO % 0.4 % (0.0-1.0); EOS # 0.3 10*3/uL (0.0-0.4); EOS % 3.5 % (1.0-4.0); HEMATOCRIT 40.9 % (37.0-47.0); HEMOGLOBIN 13.2 g/dl (12.0-16.0); LYMPH # 1.2 10*3/uL (1.3-4.4); LYMPH % 12.8 % (27.0-41.0); MEAN CELL VOLUME 95.8 fl (81.0-99.0); MEAN CORPUSCULAR HGB 30.9 pg (27.0-31.0); MEAN CORPUSCULAR HGB CONC 32.3 g/dl (33.0-37.0); MEAN PLATELET VOLUME 10.5 fl (9.6-12.3); MONO # 0.7 10*3/uL (0.1-1.0); MONO % 7.2 % (3.0-9.0); NEUT # 6.9 10*3/uL (2.3-7.9); NEUT % 75.8 % (47.0-73.0); PLATELET COUNT AUTOMATED 219 10*3/uL (130-400); RED BLOOD COUNT 4.27 10*6/uL (4.10-5.10); RED CELL DISTRI WIDTH 14.1 % (0-14.5); WHITE BLOOD COUNT 9.1 10*3/uL (4.8-10.8)
[2019-05-03 10:01] LABS: BUN 10 mg/dl (7-24); CHLORIDE 109 mmol/L (98-107); CREATININE 0.63 mg/dL (0.55-1.02); POTASSIUM 3.3 mmol/L (3.5-5.1); SODIUM 144 mmol/L (136-145)
== END 2019-05-03 15:36 | disposition home health service (06) | DRG 313 ==
LOC: ED 23:43 → EDHOLD 05-02 01:43 → 4E 05-02 01:43
PROVIDERS: Emergency Medicine Emergency Medical Services; Internal Medicine; ADMIT Internal Medicine
PROC: 3E073KZ Introduction of Other Diagnostic Substance into Coronary Artery, Percutaneous Approach (ICD-10-PCS; principal; 2019-05-03)
PROC: 4A02XM4 Measurement of Cardiac Total Activity, External Approach (ICD-10-PCS; principal; 2019-05-03)
DX: R07.89 Other chest pain (principal); G20 Parkinson's disease; F41.1 Generalized anxiety disorder; E78.00 Pure hypercholesterolemia, unspecified; F32.9 Major depressive disorder, single episode, unspecified; N32.81 Overactive bladder; F02.80 Dementia in other diseases classified elsewhere, unspecified severity, without behavioral disturbance, psychotic disturbance, mood disturbance, and anxiety; R29.810 Facial weakness; Z66 Do not resuscitate; Z51.5 Encounter for palliative care; J44.9 Chronic obstructive pulmonary disease, unspecified; R53.1 Weakness; E87.6 Hypokalemia; G89.29 Other chronic pain; M50.90 Cervical disc disorder, unspecified, unspecified cervical region; R00.1 Bradycardia, unspecified; F17.210 Nicotine dependence, cigarettes, uncomplicated; E87.8 Other disorders of electrolyte and fluid balance, not elsewhere classified; R73.9 Hyperglycemia, unspecified; E83.51 Hypocalcemia; Z88.6 Allergy status to analgesic agent; Z88.5 Allergy status to narcotic agent; Z88.1 Allergy status to other antibiotic agents; Z86.14 Personal history of Methicillin resistant Staphylococcus aureus infection; Z90.49 Acquired absence of other specified parts of digestive tract; Z90.710 Acquired absence of both cervix and uterus; Z82.49 Family history of ischemic heart disease and other diseases of the circulatory system; Z80.1 Family history of malignant neoplasm of trachea, bronchus and lung; Z82.3 Family history of stroke; Z84.89 Family history of other specified conditions; Z79.899 Other long term (current) drug therapy; Z79.82 Long term (current) use of aspirin

== ENCOUNTER 2019-11-16 11:50 | Emergency (ER) | payer OTHER ==
[~2019-11-16] VITALS: Ht 162.5 cm; Wt 74.4 kg
[~2019-11-16 11:50] MED LIST changes: +ASPIRIN ADULT L81 M1 PO; +IBUPROFEN600 MG PO; +PREGABALIN50 MG PO
[2019-11-16 11:54] VITALS: BP 120/70
[2019-11-16 12:38] LABS: BASO # 0.1 10*3/uL (0.0-0.1); BASO % 0.8 % (0.0-1.0); EOS # 0.2 10*3/uL (0.0-0.4); EOS % 2.7 % (1.0-4.0); HEMATOCRIT 40.3 % (37.0-47.0); LYMPH # 1.2 10*3/uL (1.3-4.4); LYMPH % 16.3 % (27.0-41.0); MEAN CELL VOLUME 93.5 fl (81.0-99.0); MEAN CORPUSCULAR HGB 29.7 pg (27.0-31.0); MEAN CORPUSCULAR HGB CONC 31.8 g/dl (33.0-37.0); MONO # 0.4 10*3/uL (0.1-1.0); MONO % 5.4 % (3.0-9.0); NEUT # 5.5 10*3/uL (2.3-7.9); NEUT % 74.4 % (47.0-73.0); PLATELET COUNT AUTOMATED 193 10*3/uL (130-400); RED BLOOD COUNT 4.31 10*6/uL (4.10-5.10); RED CELL DISTRI WIDTH 13.2 % (0-14.5); WHITE BLOOD COUNT 7.4 10*3/uL (4.8-10.8)
[2019-11-16 12:53] LABS: ALBUMIN 3.3 gm/dl (3.1-4.5); ALKALINE PHOSPHATASE 113 U/L (45-117); BUN 11 mg/dl (7-24); CHLORIDE 112 mmol/L (98-107); CREATININE 0.66 mg/dL (0.55-1.02); POTASSIUM 3.8 mmol/L (3.5-5.1); SGOT/AST 11 IU/L (3-35); SGPT/ALT 25 U/L (12-78); SODIUM 141 mmol/L (136-145); TOTAL PROTEIN 6.2 gm/dL (6.4-8.2)
[2019-11-16] MEDS ORDERED: Percocet 325 MG1 TAB PO (14:15)
== END 2019-11-16 14:20 | disposition home or self-care (01) ==
LOC: ED 11:50
PROVIDERS: Physician Assistant
DX: M79.652 Pain in left thigh (principal); R10.9 Unspecified abdominal pain; F17.200 Nicotine dependence, unspecified, uncomplicated; Z88.6 Allergy status to analgesic agent; Z88.1 Allergy status to other antibiotic agents; Z79.899 Other long term (current) drug therapy; Z79.82 Long term (current) use of aspirin; Z88.8 Allergy status to other drugs, medicaments and biological substances

== ENCOUNTER 2019-12-25 22:44 | Inpatient (IN) | payer OTHER ==
[~2019-12-25] VITALS: Ht 162.5 cm; Wt 75.9 kg
[~2019-12-25 22:44] MED LIST changes: +Percocet 325 MG1 TAB PO
[2019-12-25 22:57] VITALS: BP 97/41
--- NOTE | 2019-12-25 23:02 | NUR ---
I CALLED THE TO TRY AND OBTAIN A HX ON THE PATIENT. HE DID NOT ANSWER THE PHONE.
[2019-12-25 23:29] LABS: BILIRUBIN Negative (Negative); BLOOD 2+ (Negative); CLARITY Turbid (Clear); COLOR Yellow (Yellow); GLUCOSE Negative (Negative); KETONE Negative (Negative); LEUKO ESTERASE 3+ (Negative); NITRITE Positive (Negative); PH 5.5 (4.5-8.0)
[2019-12-25 23:40] LABS: WBC TNTC wbc/hpf (0-5)
[2019-12-26] VITALS (7 sets, daily range): BP systolic 100–137; BP diastolic 42–89
[2019-12-26 00:22] LABS: BASO # 0.1 10*3/uL (0.0-0.1); BASO % 0.7 % (0.0-1.0); EOS # 0.2 10*3/uL (0.0-0.4); EOS % 2.9 % (1.0-4.0); HEMATOCRIT 36.6 % (37.0-47.0); LYMPH # 1.3 10*3/uL (1.3-4.4); LYMPH % 16.5 % (27.0-41.0); MEAN CELL VOLUME 93.8 fl (81.0-99.0); MEAN CORPUSCULAR HGB 29.5 pg (27.0-31.0); MEAN CORPUSCULAR HGB CONC 31.4 g/dl (33.0-37.0); MEAN PLATELET VOLUME 10.3 fl (9.6-12.3); MONO # 0.7 10*3/uL (0.1-1.0); MONO % 9.3 % (3.0-9.0); NEUT # 5.3 10*3/uL (2.3-7.9); NEUT % 70.1 % (47.0-73.0); PLATELET COUNT AUTOMATED 180 10*3/uL (130-400); RED CELL DISTRI WIDTH 13.3 % (0-14.5); WHITE BLOOD COUNT 7.6 10*3/uL (4.8-10.8)
[2019-12-26 00:39] LABS: ALBUMIN 2.9 gm/dl (3.1-4.5); ALKALINE PHOSPHATASE 265 U/L (45-117); BUN 17 mg/dl (7-24); CHLORIDE 108 mmol/L (98-107); POTASSIUM 4.4 mmol/L (3.5-5.1); SGOT/AST 53 IU/L (3-35); SGPT/ALT 76 U/L (12-78); SODIUM 141 mmol/L (136-145); TOTAL PROTEIN 6.6 gm/dL (6.4-8.2)
--- NOTE | 2019-12-26 00:58 | NUR ---
THE PATIENT IS LYING ON THE BED WITH HER EYES CLOSED. VITALS WERE UPDATED. CALL LIGHT IS ATTACHED TO THE BED
--- NOTE | 2019-12-26 03:30 | NUR ---
PT. RESTING IN BED WITH EYES CLOSED. RR EASY AND NON-LABORED. CALL LIGHT WITHIN REACH. WILL CONTINUE TO MONITOR.
--- NOTE | 2019-12-26 05:30 | NUR ---
PT. RESTING IN BED WITH EYES CLOSED. RR EASY AND NON-LABORED. CALL LIGHT WITHIN REACH. WILL CONTINUE TO MONITOR.
--- NOTE | 2019-12-26 10:20 | NUR ---
DR. PERLA NOTIFIED OF PT BEING AN ED HOLD
--- NOTE | 2019-12-26 11:30 | NUR ---
PATIENT PROVIDED A LUNCH TRAY. RESTING.
--- NOTE | 2019-12-26 13:00 | NUR ---
PATIENT WAS ASSISTED TO THE BED SIDE COMMODE. ATE 80% OF HER FOOD THAT WAS PROVIDED. GOWN AND BRIEF WERE CHANGED. PT DID VOID. ASSISTED BACK INTO BED. NO DISTRESS. CALL LIGHT IN REACH. WILL CONTINUE TO MONITOR PT.
--- NOTE | 2019-12-26 13:46 | NUR ---
PT REQUESTING WARM BLANKET, AND LIGHTS TURNED DOWN. VOICES NO OTEHR NEEDS AT THIS TIME.
--- NOTE | 2019-12-26 14:35 | NUR ---
PT WATCHING TV. VOICES NO NEEDS AT THIS TIME.
--- NOTE | 2019-12-26 15:45 | NUR ---
PT RESTING IN BED. DENIES PAIN AT THIS TIME.
--- NOTE | 2019-12-26 15:54 | NUR ---
REPORT GIVEN TO DANNY ON 5TH FLOOR.
--- NOTE | 2019-12-26 16:05 | NUR ---
Time: 1604 A 69 year old FEMALE admitted to 5E under services of DR. PAN LEAHY,[facility]. Pt. arrived via stretcher from ER. Chief complaint: UTI. RUT MICHAEL
--- NOTE | 2019-12-26 22:42 | NUR ---
SPOKE TO PT REGARDING CODE STATUS. PT STATES SHE WANTS COMFORT MEASURES ONLY. STATES NO CPR/DEFIB/INTUBATION/LIFE SAVING MEDS, COMFORT MEASURES ONLY. DNR-CC PAPER SIGNED BY PT & PLACED ON PT'S PHYSICAL CHART. WILL NEED SIGNED BY IN AM. PT AWARE THAT WE DO NOT HAVE A COPY OF [employer] DIRECTIVES ON FILE. STATES SHE WILL TRY TO HAVE BRING THEM IN, BUT UNSURE IF HE WILL BE ABLE TO DO SO.
--- NOTE | 2019-12-26 22:50 | NUR ---
NICOTINE PATCH PLACED ON L UPPER ARM. CHAPSTICK PROVIDED PER REQUEST.
[2019-12-27] VITALS: BP 125/67
--- NOTE | 2019-12-27 00:53 | NUR ---
PT REFUSING TO GET BATHED TONIGHT.
[2019-12-27 07:06] LABS: ALBUMIN 2.7 gm/dl (3.1-4.5); ALKALINE PHOSPHATASE 251 U/L (45-117); BUN 12 mg/dl (7-24); CHLORIDE 112 mmol/L (98-107); CREATININE 0.52 mg/dL (0.55-1.02); SGOT/AST 29 IU/L (3-35); SGPT/ALT 30 U/L (12-78); SODIUM 145 mmol/L (136-145); TOTAL PROTEIN 6.3 gm/dL (6.4-8.2)
[2019-12-27 08:00] VITALS: BP 118/72
--- NOTE | 2019-12-27 08:30 | NUR ---
Patient resting quietly with no c/o discomfort. Respirations easy and regular. Vital signs stable. No overt distress. RTU MICHAEL R
--- NOTE | 2019-12-27 08:57 | NUR ---
PHYSICAL THERAPY Physical Therapy evaluation completed on 5E with full evaluation to follow. Moderate complexit PT evaluation per chart review and evaluation, [address]. Recommend physical therapy per plan of care and SNF upon discharge. Thank you for this referral. Priya Pat,PT,DPT
--- NOTE | 2019-12-27 09:30 | NUR ---
[employer] in to talk to patient. Patient states lives at home with her . There are 0 steps in the home. There is a chair lift. Physician: Dr. Dayron Palma [facility]: would like [facility] on discharge, [facility] 3 hours daily 5 days a week Patient's level of ADLs: MINIMAL ASSIST Patient has working utilities: yes DME: walker, cane, hover round Follow-up physician's appointment after d/c: she prefers to make her own follow up appt after discharge Does patient want to access PORTAL?: no Discharge plan discussed with patient. She lives at home with her . She needs minimal assistance with her ADLs and ambulates with either a cane or a walker but normally gets around in the hover round. Discussed short term SNF and she refuses. Discussed home health care services and she is agreeable. When provided a list of agencies she chose [facility] as she has had them in the past. She states she also has [facility] for 3 hours daily 5 days a week. When medically stable she will be discharged to home with [facility] and resumption of her [facility]. She states her will provide transportation on discharge. DORENE GRAVES
--- NOTE | 2019-12-27 09:31 | NUR ---
Spoke with Delmis regarding wound care recommendations she states she will notify Dr. Palma when he rounds
--- NOTE | 2019-12-27 09:41 | NUR ---
Nursing screen received and chart was reviewed. Patient was admitted with a UTI and generalized weakness. patient has a past medical hisotry of parkinsons disease. If patient has a decline in ADLs, transfers or functional mobility please send OT orders. Thank you. Marisol Altman OTR/L
--- NOTE | 2019-12-27 10:57 | NUR ---
PHYSICAL THERAPY Nursing screen received and chart reviewed. PT order received and completed. Patient on PT caseload. Thank you. Priya Pat,PT,DPT
[2019-12-27 12:00] VITALS: BP 121/79
[2019-12-27 16:00] VITALS: BP 127/68
[2019-12-27 20:00] VITALS: BP 104/54
--- NOTE | 2019-12-27 21:01 | NUR ---
ALEC LEVIN GIVEN FOR PT COMPLAINTS OF SLEEPLESSNESS. CALL LIGHT WITHIN REACH, WILL MONITOR
--- NOTE | 2019-12-27 22:00 | NUR ---
PRN OLLIE APPEARS EFFECTIVE, PT SLEEPING
--- NOTE | 2019-12-27 23:21 | NUR ---
PATIENT REMAINS ASLEEP. NO DISTRESS NOTED. CALL LIGHT WTIHIN REACH, WILL MONITOR
[2019-12-28] VITALS: BP 92/54
--- NOTE | 2019-12-28 00:10 | NUR ---
24 HR chart check completed.
[2019-12-28] MEDS ORDERED: QUETIAPINE FUM300 M1 PO (00:54)
--- NOTE | 2019-12-28 00:59 | NUR ---
ATTEMPTED TO REVIEW MED REC. UPDATED PER MEDS RECENTLY FILLED BUT UNABLE TO COMPLETELY DO MED REC. WILL HAVE AM NURSE CALL PHARMACY IN THE MORNING
--- NOTE | 2019-12-28 02:10 | NUR ---
PATIENT REMAINS ASLEEP. NO DISTRESS NOTED. BREATHING IS EASY AND REGULAR. CALL LIGHT WTIHIN REACH, WILL MONITOR
--- NOTE | 2019-12-28 03:10 | NUR ---
PATIENT UP TO RECLINER CHAIR AND BATHED AT THIS TIME
--- NOTE | 2019-12-28 04:12 | NUR ---
OK PER DR. LOVE TO PUT IN WOUND CARE RECOMMENDATIONS PER WOUND CARE NURSE.
--- NOTE | 2019-12-28 04:16 | NUR ---
PT REFUSING TO HAVE DRESSING TO DORSAL ASPECT OF RIGHT FOOT. PATIENT REQUESTED BAND AID TO RIGHT AREA OF WHERE HER TOENAIL FELL OFF EVEN THOUGH THERE WERE NO OPEN AREAS.
--- NOTE | 2019-12-28 08:45 | NUR ---
CM in to see patient. No new needs or request at this time. Discussed short term rehab and she declines. She remains agreeable to [facility]. When medically stable she will be discharged to home with [facility] services.
[2019-12-28 08:46] VITALS: BP 114/58
--- NOTE | 2019-12-28 12:13 | NUR ---
Faxed home health referral to [facility] along with face to face and clinical
[2019-12-28 13:03] VITALS: BP 92/58
--- NOTE | 2019-12-28 15:00 | NUR ---
Faxed discharge instructions and summary to [facility]
--- NOTE | 2019-12-28 16:27 | NUR ---
Discharge instructions reviewed with patient/family. Patient receptive and verbalizes understanding. Follow-up care arranged. Written instructions given to patient/family. IV WAS REMOVED AND PT HAD NO QUESTIONS. NATO BOYLE
[2019-12-28] MEDS ORDERED: CIPRO500 MG PO (21:25)
== END 2019-12-28 16:27 | disposition home health service (06) | DRG 690 ==
LOC: ED 22:44 → EDHOLD 12-26 01:37 → 5E 12-26 15:43
PROVIDERS: Emergency Medicine; ADMIT Internal Medicine; ATTEND Internal Medicine
DX: N39.0 Urinary tract infection, site not specified (principal); F33.9 Major depressive disorder, recurrent, unspecified; E44.0 Moderate protein-calorie malnutrition; F41.1 Generalized anxiety disorder; E78.2 Mixed hyperlipidemia; M19.90 Unspecified osteoarthritis, unspecified site; J44.9 Chronic obstructive pulmonary disease, unspecified; R62.7 Adult failure to thrive; G20 Parkinson's disease; G47.00 Insomnia, unspecified; E78.00 Pure hypercholesterolemia, unspecified; Z51.5 Encounter for palliative care; F02.80 Dementia in other diseases classified elsewhere, unspecified severity, without behavioral disturbance, psychotic disturbance, mood disturbance, and anxiety; D64.9 Anemia, unspecified; Z66 Do not resuscitate; E55.9 Vitamin D deficiency, unspecified; G89.29 Other chronic pain; M54.9 Dorsalgia, unspecified; W18.39XA Other fall on same level, initial encounter; Z82.49 Family history of ischemic heart disease and other diseases of the circulatory system; Z85.118 Personal history of other malignant neoplasm of bronchus and lung; Z88.6 Allergy status to analgesic agent; Z88.1 Allergy status to other antibiotic agents; Z88.8 Allergy status to other drugs, medicaments and biological substances; Y93.89 Activity, other specified; Y99.8 Other external cause status; Y92.098 Other place in other non-institutional residence as the place of occurrence of the external cause; Z68.28 Body mass index [BMI] 28.0-28.9, adult

== ENCOUNTER 2020-02-05 12:22 | Emergency (ER) | payer OTHER ==
[~2020-02-05 12:22] MED LIST changes: +QUETIAPINE FUM300 M1 PO
[2020-02-05 12:27] VITALS: BP 130/72
[2020-02-05 12:52] LABS: BASO % 0.4 % (0.0-1.0); EOS # 0.1 10*3/uL (0.0-0.4); EOS % 0.8 % (1.0-4.0); HEMATOCRIT 41.5 % (37.0-47.0); LYMPH # 0.8 10*3/uL (1.3-4.4); LYMPH % 7.5 % (27.0-41.0); MEAN CELL VOLUME 93.3 fl (81.0-99.0); MEAN CORPUSCULAR HGB 29.7 pg (27.0-31.0); MEAN CORPUSCULAR HGB CONC 31.8 g/dl (33.0-37.0); MEAN PLATELET VOLUME 10.1 fl (9.6-12.3); MONO # 0.6 10*3/uL (0.1-1.0); NEUT # 9.6 10*3/uL (2.3-7.9); PLATELET COUNT AUTOMATED 193 10*3/uL (130-400); RED BLOOD COUNT 4.45 10*6/uL (4.10-5.10); RED CELL DISTRI WIDTH 13.5 % (0-14.5); WHITE BLOOD COUNT 11.2 10*3/uL (4.8-10.8)
[2020-02-05 13:04] LABS: ACT PARTIAL THROMBO TIME 25.9 SECONDS (20.0-32.1)
[2020-02-05 13:06] LABS: ALBUMIN 3.6 gm/dl (3.1-4.5); ALKALINE PHOSPHATASE 119 U/L (45-117); BUN 10 mg/dl (7-24); CHLORIDE 108 mmol/L (98-107); CREATININE 0.78 mg/dL (0.55-1.02); LIPASE 14 U/L (73-393); POTASSIUM 3.6 mmol/L (3.5-5.1); SGOT/AST 12 IU/L (3-35); SGPT/ALT 18 U/L (12-78); SODIUM 139 mmol/L (136-145); TOTAL PROTEIN 6.5 gm/dL (6.4-8.2)
[2020-02-05 13:10] LABS: BILIRUBIN Negative (Negative); BLOOD Trace-Lysed (Negative); CLARITY Clear (Clear); COLOR Dark Yellow (Yellow); GLUCOSE Negative (Negative); KETONE 2+ (Negative); LEUKO ESTERASE 3+ (Negative); NITRITE Negative (Negative); SPECIFIC GRAVITY 1.025 (1.001-1.030)
[2020-02-05 13:18] LABS: BACTERIA 3+; WBC TNTC wbc/hpf (0-5)
[2020-02-05] MEDS ORDERED: SEPTDS PO (17:08)
== END 2020-02-05 16:12 | disposition left against medical advice (07) ==
LOC: ED 12:22
PROVIDERS: Emergency Medicine
DX: N39.0 Urinary tract infection, site not specified (principal); J44.9 Chronic obstructive pulmonary disease, unspecified; E78.00 Pure hypercholesterolemia, unspecified; Z88.6 Allergy status to analgesic agent; Z88.1 Allergy status to other antibiotic agents; Z79.82 Long term (current) use of aspirin; Z79.899 Other long term (current) drug therapy; Z87.891 Personal history of nicotine dependence

== ENCOUNTER 2020-02-09 15:20 | Observation (INO) | payer OTHER ==
[~2020-02-09] VITALS: Wt 68.0 kg
[2020-02-09 15:22] VITALS: BP 100/58
[2020-02-09 15:49] LABS: BASO # 0.1 10*3/uL (0.0-0.1); BASO % 0.6 % (0.0-1.0); EOS # 0.1 10*3/uL (0.0-0.4); EOS % 1.2 % (1.0-4.0); LYMPH # 1.4 10*3/uL (1.3-4.4); LYMPH % 15.1 % (27.0-41.0); MEAN CELL VOLUME 93.2 fl (81.0-99.0); MEAN CORPUSCULAR HGB 29.5 pg (27.0-31.0); MEAN CORPUSCULAR HGB CONC 31.7 g/dl (33.0-37.0); MEAN PLATELET VOLUME 9.8 fl (9.6-12.3); MONO # 0.4 10*3/uL (0.1-1.0); MONO % 4.6 % (3.0-9.0); NEUT # 7.1 10*3/uL (2.3-7.9); NEUT % 78.1 % (47.0-73.0); PLATELET COUNT AUTOMATED 241 10*3/uL (130-400); RED CELL DISTRI WIDTH 14.4 % (0-14.5); WHITE BLOOD COUNT 9.1 10*3/uL (4.8-10.8)
[2020-02-09 16:01] LABS: ACT PARTIAL THROMBO TIME 23.4 SECONDS (20.0-32.1); INTERNATIONAL NORM RATIO 0.9 (2.0-3.5)
[2020-02-09 16:08] LABS: ACETAMINOPHEN (TYLENOL) < 5.0 ug/ml (10-30); ALBUMIN 3.4 gm/dl (3.1-4.5); ALKALINE PHOSPHATASE 93 U/L (45-117); BUN 39 mg/dl (7-24); CHLORIDE 113 mmol/L (98-107); CREATININE 1.47 mg/dL (0.55-1.02); ETHYL ALCOHOL < 3.0 mg/dl (<3); LIPASE 250 U/L (73-393); POTASSIUM 3.2 mmol/L (3.5-5.1); SGOT/AST 8 IU/L (3-35); SGPT/ALT 10 U/L (12-78); SODIUM 141 mmol/L (136-145); TOTAL PROTEIN 6.1 gm/dL (6.4-8.2); TROPONIN I < 0.015 ng/ml (<0.045)
[2020-02-09 16:14] LABS: BILIRUBIN Negative (Negative); BLOOD Negative (Negative); CLARITY Cloudy (Clear); COLOR Yellow (Yellow); GLUCOSE Negative (Negative); KETONE Trace (Negative); LEUKO ESTERASE 3+ (Negative); NITRITE Negative (Negative); PH 5.5 (4.5-8.0); SPECIFIC GRAVITY 1.025 (1.001-1.030); UROBILINOGEN 0.2 E.U./dl (0.0-1.0)
[2020-02-09 16:20] LABS: URINE AMPHETAMINES < 1000 (1000ng/ml); URINE BARBITURATES > 200 (200ng/ml); URINE BENZODIAZEPINES < 200 (200ng/ml); URINE CANNABINOIDS (THC) < 50 (50ng/ml); URINE COCAINE < 300 (300ng/ml); URINE METHADONE < 300 (300ng/ml); URINE OPIATES < 300 (300ng/ml)
[2020-02-09 16:23] LABS: URINE PHENCYCLIDINE < 25 (25ng/ml)
[2020-02-09 16:39] LABS: BACTERIA TRACE; YEAST 2+
--- NOTE | 2020-02-09 18:55 | NUR ---
DINNER TRAY PROVIDED. PT CONTINUES TO BE VERY DROWSY.
--- NOTE | 2020-02-09 19:32 | NUR ---
PT RESTING IN BED WITH EYES OPEN, PT EATING DINNER, CALL LIGHT WITHIN REACH, NO ACUTE DISTRESS NOTED UPON THIS RN EXITING THE ROOM
--- NOTE | 2020-02-09 19:45 | NUR ---
PT POTASSIUM 2.4. RESIDENT CONTACTED. STATES HE WILL ORDER K-DUR AT THIS TIME.
--- NOTE | 2020-02-09 22:54 | NUR ---
PT RESTING IN BED, WARM BLANKET PROVIDED FOR COMFORT, CALL LIGHT WITHIN REACH, NO ACUTE DISTRESS NOTED UPON THIS RN EXITING THE ROOM
--- NOTE | 2020-02-10 00:43 | NUR ---
PT RESTING IN BED WITH EYES CLOSED, CALL LIGHT WITHIN REACH, NO ACUTE DISTRESS NOTED UPON THIS RN EXITING THE ROOM
[2020-02-10 01:35] VITALS: BP 121/64
--- NOTE | 2020-02-10 02:07 | NUR ---
PT RESTING IN BED WATCHING TV, CALL LIGHT WITHIN REACH, NO ACUTE DISTRESS NOTED UPON THIS RN EXITING THE ROOM
--- NOTE | 2020-02-10 04:49 | NUR ---
PT RESTING IN BED WITH EYES OPEN WATCHING TV, NO ACUTE DISTRESS NOTED UPON THIS RN EXITING THE ROOM, CALL LIGHT WITHIN REACH
[2020-02-10 05:20] VITALS: BP 127/66
--- NOTE | 2020-02-10 05:20 | NUR ---
PT DEPENDS CHANGED, NEW BED LINENS, PT RESTING IN BED WATCHING TV, CALL LIGHT WITHIN REACH, NO ACUTE DISTRESS NOTED UPON THIS RN EXITING THE ROOM
--- NOTE | 2020-02-10 07:00 | NUR ---
REPORT FROM NIEVES VERMA.
--- NOTE | 2020-02-10 07:30 | NUR ---
PATIENT IS REQUESTING TO LEAVE AMA AT THIS TIME. DR. PERLA NOTIFIED.
--- NOTE | 2020-02-10 08:58 | NUR ---
STOPPED FLUIDS AND PULLED IV IN RAC.
== END 2020-02-10 08:46 | disposition left against medical advice (07) ==
LOC: ED 15:20 → EDHOLD 17:49
PROVIDERS: Emergency Medicine; ADMIT Internal Medicine; ATTEND Internal Medicine
DX: E86.0 Dehydration (principal); N17.9 Acute kidney failure, unspecified; R53.1 Weakness; E87.6 Hypokalemia; E78.00 Pure hypercholesterolemia, unspecified; F32.9 Major depressive disorder, single episode, unspecified; F03.90 Unspecified dementia, unspecified severity, without behavioral disturbance, psychotic disturbance, mood disturbance, and anxiety; J44.9 Chronic obstructive pulmonary disease, unspecified; F41.0 Panic disorder [episodic paroxysmal anxiety]; Z79.899 Other long term (current) drug therapy

== ENCOUNTER 2020-03-18 23:49 | Emergency (ER) | payer OTHER ==
[~2020-03-18] VITALS: Ht 162.5 cm; Wt 66.2 kg
[2020-03-19 00:31] LABS: BASO % 0.6 % (0.0-1.0); EOS # 0.3 10*3/uL (0.0-0.4); LYMPH # 1.5 10*3/uL (1.3-4.4); LYMPH % 20.3 % (27.0-41.0); MEAN CELL VOLUME 96.1 fl (81.0-99.0); MEAN CORPUSCULAR HGB 29.3 pg (27.0-31.0); MEAN CORPUSCULAR HGB CONC 30.5 g/dl (33.0-37.0); MEAN PLATELET VOLUME 10.4 fl (9.6-12.3); MONO # 0.5 10*3/uL (0.1-1.0); MONO % 6.6 % (3.0-9.0); NEUT # 4.9 10*3/uL (2.3-7.9); NEUT % 68.2 % (47.0-73.0); PLATELET COUNT AUTOMATED 189 10*3/uL (130-400); RED BLOOD COUNT 4.06 10*6/uL (4.10-5.10); RED CELL DISTRI WIDTH 14.4 % (0-14.5); WHITE BLOOD COUNT 7.2 10*3/uL (4.8-10.8)
[2020-03-19 00:48] LABS: ALBUMIN 2.9 gm/dl (3.1-4.5); ALKALINE PHOSPHATASE 137 U/L (45-117); BUN 12 mg/dl (7-24); CHLORIDE 109 mmol/L (98-107); CREATININE 0.81 mg/dL (0.55-1.02); POTASSIUM 4.2 mmol/L (3.5-5.1); SGOT/AST 12 IU/L (3-35); SODIUM 142 mmol/L (136-145); TOTAL PROTEIN 5.9 gm/dL (6.4-8.2)
[2020-03-19 00:50] LABS: SGPT/ALT < 6 U/L (12-78); TROPONIN I < 0.015 ng/ml (<0.045)
[2020-03-19 01:28] LABS: BILIRUBIN Negative (Negative); BLOOD Trace-Intact (Negative); CLARITY Turbid (Clear); COLOR Dark Yellow (Yellow); GLUCOSE Negative (Negative); KETONE Trace (Negative); LEUKO ESTERASE 3+ (Negative); NITRITE Negative (Negative); PH 6.5 (4.5-8.0)
[2020-03-19 01:40] LABS: RBC 21-30 rbc/hpf (0-2)
[2020-03-19 01:41] LABS: BACTERIA 2+; WBC TNTC wbc/hpf (0-5)
[2020-03-19 01:43] VITALS: BP 100/51
[2020-03-19] MEDS ORDERED: CEPHALEXIN500 M1 PO (02:44)
== END 2020-03-19 03:15 | disposition home or self-care (01) ==
LOC: ED 23:49
PROVIDERS: Emergency Medicine
DX: N39.0 Urinary tract infection, site not specified (principal); R51.9 Headache, unspecified; F41.9 Anxiety disorder, unspecified; J44.9 Chronic obstructive pulmonary disease, unspecified; F32.9 Major depressive disorder, single episode, unspecified; F03.90 Unspecified dementia, unspecified severity, without behavioral disturbance, psychotic disturbance, mood disturbance, and anxiety; E78.00 Pure hypercholesterolemia, unspecified; G20 Parkinson's disease; Z88.8 Allergy status to other drugs, medicaments and biological substances; Z88.5 Allergy status to narcotic agent; Z79.2 Long term (current) use of antibiotics; Z79.82 Long term (current) use of aspirin; Z79.899 Other long term (current) drug therapy; Z86.14 Personal history of Methicillin resistant Staphylococcus aureus infection; Z90.49 Acquired absence of other specified parts of digestive tract; Z90.711 Acquired absence of uterus with remaining cervical stump

== ENCOUNTER → 2021-02-13 | Outpatient (CLI) | payer OTHER ==
[~2021-02-13] MED LIST changes: +CEPHALEXIN500 M1 PO; +ERTAPENEM1 GM IV; +MIDODRINE HCL5 M1 PEG
== END | disposition home or self-care (01) ==
LOC: RAD/SH 11:00
PROVIDERS: ATTEND Internal Medicine
DX: R13.12 Dysphagia, oropharyngeal phase (principal)

== ENCOUNTER → 2021-09-16 | Outpatient (CLI) | payer OTHER ==
[2021-09-16 18:52] LABS: BASO # 0.1 10*3/uL (0.0-0.1); BASO % 0.7 % (0.0-1.0); EOS # 0.4 10*3/uL (0.0-0.4); EOS % 4.7 % (1.0-4.0); HEMATOCRIT 37.7 % (37.0-47.0); LYMPH # 1.5 10*3/uL (1.3-4.4); LYMPH % 17.7 % (27.0-41.0); MEAN CORPUSCULAR HGB 28.9 pg (27.0-31.0); MEAN CORPUSCULAR HGB CONC 30.8 g/dl (33.0-37.0); MEAN PLATELET VOLUME 9.8 fl (9.6-12.3); MONO # 0.6 10*3/uL (0.1-1.0); MONO % 6.5 % (3.0-9.0); NEUT # 5.9 10*3/uL (2.3-7.9); NEUT % 70.2 % (47.0-73.0); PLATELET COUNT AUTOMATED 267 10*3/uL (130-400); RED BLOOD COUNT 4.01 10*6/uL (4.10-5.10); RED CELL DISTRI WIDTH 14.1 % (0-14.5); WHITE BLOOD COUNT 8.5 10*3/uL (4.8-10.8)
[2021-09-16 19:19] LABS: ALKALINE PHOSPHATASE 167 U/L (45-117); BUN 24 mg/dl (7-24); CHLORIDE 110 mmol/L (98-107); CREATININE 0.77 mg/dL (0.55-1.02); POTASSIUM 4.1 mmol/L (3.5-5.1); SGOT/AST 14 IU/L (3-35); SGPT/ALT 15 U/L (12-78); SODIUM 140 mmol/L (136-145); TOTAL PROTEIN 6.5 gm/dL (6.4-8.2)
== END | disposition home or self-care (01) ==
LOC: ZVO 18:07 → LAB 18:07
PROVIDERS: ATTEND Internal Medicine
DX: G93.41 Metabolic encephalopathy (principal); D64.9 Anemia, unspecified; N17.0 Acute kidney failure with tubular necrosis; R80.9 Proteinuria, unspecified

== ENCOUNTER 2022-04-28 20:13 | Emergency (ER) | payer OTHER ==
[~2022-04-28] VITALS: Wt 68.9 kg
[2022-04-28 20:50] LABS: BASO # 0.1 10*3/uL (0.0-0.1); BASO % 0.5 % (0.0-1.0); EOS # 0.3 10*3/uL (0.0-0.4); EOS % 2.5 % (1.0-4.0); HEMATOCRIT 40.5 % (37.0-47.0); LYMPH # 1.3 10*3/uL (1.3-4.4); LYMPH % 11.3 % (27.0-41.0); MEAN CELL VOLUME 94.6 fl (81.0-99.0); MEAN CORPUSCULAR HGB 29.2 pg (27.0-31.0); MEAN CORPUSCULAR HGB CONC 30.9 g/dl (33.0-37.0); MEAN PLATELET VOLUME 9.7 fl (9.6-12.3); MONO # 0.6 10*3/uL (0.1-1.0); NEUT # 9.1 10*3/uL (2.3-7.9); NEUT % 80.3 % (47.0-73.0); PLATELET COUNT AUTOMATED 270 10*3/uL (130-400); RED BLOOD COUNT 4.28 10*6/uL (4.10-5.10); RED CELL DISTRI WIDTH 13.6 % (0-14.5); WHITE BLOOD COUNT 11.4 10*3/uL (4.8-10.8)
[2022-04-28 21:14] LABS: ALKALINE PHOSPHATASE 243 U/L (46-116); BUN 19 mg/dl (9-23); CHLORIDE 105 mmol/L (98-107); POTASSIUM 4.1 mmol/L (3.4-5.1); SGPT/ALT 8 U/L (10-49); TOTAL PROTEIN 7.1 gm/dL (6.0-8.0)
[2022-04-28 23:29] LABS: BILIRUBIN Negative (Negative); BLOOD 2+ (Negative); CLARITY Turbid (Clear); COLOR Yellow (Yellow); GLUCOSE Negative (Negative); KETONE Trace (Negative); LEUKO ESTERASE 3+ (Negative); NITRITE Positive (Negative)
[2022-04-28 23:48] LABS: BACTERIA 2+; RBC 16-20 rbc/hpf (0-2); WBC 31-40 wbc/hpf (0-5)
[2022-04-29 03:09] VITALS: BP 103/64
[2022-04-29] MEDS ORDERED: OMNICEF300 MG PO (03:35)
== END 2022-04-29 04:12 ==
LOC: ED 20:13
PROVIDERS: Physician Assistant
DX: J40 Bronchitis, not specified as acute or chronic (principal); Z20.822 Contact with and (suspected) exposure to COVID-19; N39.0 Urinary tract infection, site not specified; K21.9 Gastro-esophageal reflux disease without esophagitis; J44.9 Chronic obstructive pulmonary disease, unspecified; E78.00 Pure hypercholesterolemia, unspecified; Z88.6 Allergy status to analgesic agent; Z88.1 Allergy status to other antibiotic agents; Z79.899 Other long term (current) drug therapy; Z79.82 Long term (current) use of aspirin; Z90.49 Acquired absence of other specified parts of digestive tract; Z90.710 Acquired absence of both cervix and uterus; Z98.890 Other specified postprocedural states; Z87.891 Personal history of nicotine dependence